=== PATIENT | male | born 1975 | race Caucasian/White ===

== ENCOUNTER 2017-07-26 03:49 | Inpatient (IN) | payer OTHER ==
[~2017-07-26] VITALS: Ht 188 cm; Wt 68.5 kg
[2017-07-26] MEDS ORDERED: IPRATRPIUM/ALBUTEROL 0.5/2.5MG 3 ML NEBU. ONE (04:07)
[2017-07-26 04:35] LABS: BASO % 0 % (0-3); EOS % 3 % (0-3); HEMATOCRIT 42.5 % (39.0-53.0); HEMOGLOBIN 14.6 g/dL (13.0-17.5); LYMPH # 1.1 x10^3/uL (1.0-4.8); LYMPH % 9 % (24-48); MEAN CORPUSCULAR HEMOGLOBIN 31 pg (25-35); MEAN CORPUSCULAR HGB CONC 34 g/dL (31-37); MEAN CORPUSCULAR VOLUME 91 fL (79-100); MONO % 7 % (0-9); NEUT % 81 % (31-73); PLATELET COUNT 265 x10^3/uL (140-400); RED BLOOD COUNT 4.68 x10^6/uL (4.30-5.70); RED CELL DISTRIBUTION WIDTH 13.4 % (11.5-14.5); WHITE BLOOD COUNT 13.3 x10^3/uL (4.0-11.0)
--- NOTE | 2017-07-26 04:39 | PHYS DOC ---
Past Medical History Past Medical History: Asthma Past Surgical History: Tonsillectomy, Other Additional Past Surgical Histo: EAR TUBES Alcohol Use: Rarely Drug Use: Marijuana Adult General Chief Complaint Chief Complaint: ASTHMA HPI HPI Patient is a 41 year old male with history of asthma requiring previous extended hospital with ICU admission resents with acute exacerbation starting several hours prior to ED arrival. She reports his congestion rhinorrhea and sore throat and body aches for the past 24 hours with progressive shortness of breath. Reports wet nonproductive cough. No fevers chills nausea or sweats. Patient has had recent viral illness exposure to children in the home. Patient used his albuterol inhaler 6-8 times her to ED arrival. Arrives by private vehicle speaking in 1-2 word sentences. Patient brought straight back to treatment room from triage. Patient is not currently on any home suppressive small medications. He is a current smoker and drinks occasional alcohol. Patient is accompanied at bedside by his spouse. [] Review of Systems Review of Systems ROS as per HPI [] All other systems were reviewed and found to be within normal limits, except as documented in this note. Current Medications Current Medications Current Medications Medications (Trade) Dose Ordered Sig/Luz Start Time Stop Time Status Last Admin Dose Admin Albuterol Sulfate (Ventolin Neb Soln) 10 mg 1X ONCE 07/26/17 05:00 07/26/17 05:01 DC 07/26/17 04:41 10 MG Albuterol/ Ipratropium (Duoneb) 3 ml STK-MED ONCE 07/26/17 04:07 07/26/17 04:08 DC Ipratropium [place] (Atrovent) 0.5 mg 1X ONCE 07/26/17 05:00 07/26/17 05:01 DC 07/26/17 04:41 0.5 MG Magnesium Sulfate/ Dextrose 100 ml @ 100 mls/hr 1X ONCE 07/26/17 05:00 07/26/17 05:59 DC 07/26/17 05:30 100 MLS/HR Methylprednisolone Sodium Succinate (SOLU-Medrol 125MG VIAL) 125 mg 1X ONCE 07/26/17 05:00 07/26/17 05:01 DC 07/26/17 05:30 125 MG Sodium Chloride 1,000 ml @ 1,000 mls/hr 1X ONCE 07/26/17 05:00 07/26/17 05:59 DC 07/26/17 05:30 1,000 MLS/HR Allergies Allergies Allergies Coded Allergies Type Severity Reaction Last Updated Verified Penicillins Allergy Severe Anaphylaxis 07/26/17 Yes iodine Allergy Severe Anaphylaxis 07/26/17 Yes Sulfa (Sulfonamide Antibiotics) Allergy Intermediate 07/26/17 Yes erythromycin base Allergy Intermediate 07/26/17 Yes Physical Exam Physical Exam Constitutional: Well developed, well nourished, moderate respiratory distress. [ ] HENT: Normocephalic, atraumatic, bilateral external ears normal, oropharynx moist, pharyngeal , nose orestes, congestion. [] Eyes: PERRLA, EOMI. [] Neck: Normal range of motion. [] Cardiovascular:Heart rate regular rhythm, no murmur [] Lungs & Thorax: Tory distress, with tripoding and supraclavicular retractions, speaks in 1-2 word sentences, significantly which breath sounds bilaterally with faint inspiratory next 3 wheezes. [] Abdomen: Bowel sounds normal, soft, no tenderness, no masses, no pulsatile masses. [] Skin: Warm, dry, no erythema. [] Back: No tenderness, no CVA tenderness. [] Extremities: No tenderness, no cyanosis, no clubbing, ROM intact, no edema. [] Neurologic: Alert and oriented X 3, normal motor function, normal sensory function, no focal deficits noted. [] Psychologic: Affect anxious. [] Current Patient Data Vital Signs Vital Signs Date Time Temp Pulse Resp B/P (MAP) Pulse Ox O2 Delivery O2 Flow Rate FiO2 07/26/17 05:00 104 36 110/64 (79) 100 Nasal Cannula 2.0 07/26/17 04:25 98.1 98.1 Lab Values Laboratory Tests Test 07/26/17 04:16 07/26/17 04:56 White Blood Count 13.3 x10^3/uL (4.0-11.0) H Red Blood Count 4.68 x10^6/uL (4.30-5.70) Hemoglobin 14.6 g/dL (13.0-17.5) Hematocrit 42.5 % (39.0-53.0) Mean Corpuscular Volume 91 fL (79-100) Mean Corpuscular Hemoglobin 31 pg (25-35) Mean Corpuscular Hemoglobin Concent 34 g/dL (31-37) Red Cell Distribution Width 13.4 % (11.5-14.5) Platelet Count 265 x10^3/uL (140-400) Neutrophils (%) (Auto) 81 % (31-73) H Lymphocytes (%) (Auto) 9 % (24-48) L Monocytes (%) (Auto) 7 % (0-9) Eosinophils (%) (Auto) 3 % (0-3) Basophils (%) (Auto) 0 % (0-3) Neutrophils # (Auto) 10.8 x10^3uL (1.8-7.7) H Lymphocytes # (Auto) 1.1 x10^3/uL (1.0-4.8) Monocytes # (Auto) 1.0 x10^3/uL (0.0-1.1) Eosinophils # (Auto) 0.4 x10^3/uL (0.0-0.7) Basophils # (Auto) 0.0 x10^3/uL (0.0-0.2) Sodium Level 140 mmol/L (136-145) Potassium Level 3.7 mmol/L (3.5-5.1) Chloride Level 101 mmol/L (98-107) Carbon Dioxide Level 27 mmol/L (21-32) Anion Gap 12 (6-14) Blood Urea Nitrogen 12 mg/dL (8-26) Creatinine 0.7 mg/dL (0.7-1.3) Estimated GFR (Cockcroft-Gault) 123.7 BUN/Creatinine Ratio 17 (6-20) Glucose Level 96 mg/dL (70-99) Calcium Level 9.2 mg/dL (8.5-10.1) Total Bilirubin 2.7 mg/dL (0.2-1.0) H Aspartate Amino Transferase (AST) 17 U/L (15-37) Alanine Aminotransferase (ALT) 24 U/L (16-63) Alkaline Phosphatase 67 U/L (46-116) Total Protein 7.8 g/dL (6.4-8.2) Albumin 4.7 g/dL (3.4-5.0) Albumin/Globulin Ratio 1.5 (1.0-1.7) Influenza Type A Antigen Negative (NEGATIVE) Influenza Type B Antigen Negative (NEGATIVE) Laboratory Tests 07/26/17 04:16 Laboratory Tests 07/26/17 04:16 EKG EKG [] Radiology/Procedures Radiology/Procedures [Chest XR: Hyperaeration of lungs. No acute obvious infiltrate.] Course & Med Decision Making Course & Med Decision Making Pertinent Labs and Imaging studies reviewed. (See chart for details) [Albuterol treatment, steroids given ED arrival. With clinical improvement. Patient requiring 4 L NC to maintain O2 sat renita maintain saturation greater than 90%. ] Dragon Disclaimer Dragon Disclaimer This electronic medical record was generated, in whole or in part, using a voice recognition dictation system. Departure Departure Impression: Primary Impression: Acute asthma exacerbation Additional Impression: Upper respiratory infection Disposition: ADMITTED INPATIENT Admitting Physician: Other (Dr. Gamboa) Condition: IMPROVED Referrals: NO PCP (PCP) Problem Qualifiers HUGO WALLER DO Jul 26, 2017 04:39
[2017-07-26 04:42] LABS: CALCIUM 9.2 mg/dL (8.5-10.1); CREATININE 0.7 mg/dL (0.7-1.3); GFR 123.7; POTASSIUM 3.7 mmol/L (3.5-5.1)
[2017-07-26 04:48] LABS: ALBUMIN 4.7 g/dL (3.4-5.0); ALBUMIN/GLOBULIN RATIO 1.5 (1.0-1.7); TOTAL BILIRUBIN 2.7 mg/dL (0.2-1.0); TOTAL PROTEIN 7.8 g/dL (6.4-8.2)
[2017-07-26] MEDS ORDERED: ALBUTEROL SULFATE 2.5 MG/3 ML NEBU. CONT NEB ONE (05:00)
[2017-07-26] MEDS ORDERED: MAGNESIUM SULFATE 1GM 100 ML IV ONE (05:00)
[2017-07-26] MEDS ORDERED: methylPREDNISolone SOD SUCC PF 125 MG/2 ML VIAL. IV ONE (05:00)
[2017-07-26] MEDS ORDERED: IV NORMAL SALINE 1000ML BAG 1,000 ML IV ONE (05:00)
[2017-07-26] MEDS ORDERED: IPRATROPIUM BROMIDE 0.5 MG/2.5 ML NEBU. NEB ONE (05:00)
[2017-07-26 05:26] LABS: OBC FLU VALID
--- NOTE | 2017-07-26 06:28 | EKG ---
[facility] [address] [place] [address] Test Date: 2017-07-26 Test Time: 04:39:59 Pat Name: DALTON DIXON Department: Room: Gender: M Nurse Staff: : 1975 Requested By: HUGO WALLER Order Number: [id number] Reading MD: Measurements Intervals [place] Rate: 99 P: MI: QRS: 80 QRSD: 88 T: 64 QT: 350 QTc: 449 Interpretive Statements ACCELERATED JUNCTIONAL RHYTHM ABNORMAL ECG RI6.01 No previous ECG available for comparison
[2017-07-26 07:00] VITALS: BP 103/60
[2017-07-26] MEDS ORDERED: ONDANSETRON PF 4 MG/2 ML VIAL. IV PRN (07:00)
--- NOTE | 2017-07-26 07:37 | RAD ---
AP chest History: Short of air AP view was taken of the chest. Lungs are clear. Heart is normal in size without heart failure. There is no effusion. There is mild hyperexpansion. Impression: 1. Hyperexpansion, no acute infiltrates.
[2017-07-26] MEDS: IPRATRPIUM/ALBUTEROL 0.5/2.5MG 3 ML NEBU. NEB SCH ×4 (07:40→19:42)
[2017-07-26] MEDS ORDERED: IPRATRPIUM/ALBUTEROL 0.5/2.5MG 3 ML NEBU. NEB SCH (08:00)
--- NOTE | 2017-07-26 08:29 | PDOC ---
PULMONARY PROGRESS NOTES Vitals Vital Signs Date Time Temp Pulse Resp B/P (MAP) Pulse Ox O2 Delivery O2 Flow Rate FiO2 07/26/17 07:40 97 Nasal Cannula 2.0 07/26/17 05:30 104 22 113/63 (80) 07/26/17 04:25 98.1 98.1 Labs Laboratory Tests Test 07/26/17 04:16 07/26/17 04:56 White Blood Count 13.3 x10^3/uL (4.0-11.0) Red Blood Count 4.68 x10^6/uL (4.30-5.70) Hemoglobin 14.6 g/dL (13.0-17.5) Hematocrit 42.5 % (39.0-53.0) Mean Corpuscular Volume 91 fL (79-100) Mean Corpuscular Hemoglobin 31 pg (25-35) Mean Corpuscular Hemoglobin Concent 34 g/dL (31-37) Red Cell Distribution Width 13.4 % (11.5-14.5) Platelet Count 265 x10^3/uL (140-400) Neutrophils (%) (Auto) 81 % (31-73) Lymphocytes (%) (Auto) 9 % (24-48) Monocytes (%) (Auto) 7 % (0-9) Eosinophils (%) (Auto) 3 % (0-3) Basophils (%) (Auto) 0 % (0-3) Neutrophils # (Auto) 10.8 x10^3uL (1.8-7.7) Lymphocytes # (Auto) 1.1 x10^3/uL (1.0-4.8) Monocytes # (Auto) 1.0 x10^3/uL (0.0-1.1) Eosinophils # (Auto) 0.4 x10^3/uL (0.0-0.7) Basophils # (Auto) 0.0 x10^3/uL (0.0-0.2) Sodium Level 140 mmol/L (136-145) Potassium Level 3.7 mmol/L (3.5-5.1) Chloride Level 101 mmol/L (98-107) Carbon Dioxide Level 27 mmol/L (21-32) Anion Gap 12 (6-14) Blood Urea Nitrogen 12 mg/dL (8-26) Creatinine 0.7 mg/dL (0.7-1.3) Estimated GFR (Cockcroft-Gault) 123.7 BUN/Creatinine Ratio 17 (6-20) Glucose Level 96 mg/dL (70-99) Calcium Level 9.2 mg/dL (8.5-10.1) Total Bilirubin 2.7 mg/dL (0.2-1.0) Aspartate Amino Transf (AST/SGOT) 17 U/L (15-37) Alanine Aminotransferase (ALT/SGPT) 24 U/L (16-63) Alkaline Phosphatase 67 U/L (46-116) Total Protein 7.8 g/dL (6.4-8.2) Albumin 4.7 g/dL (3.4-5.0) Albumin/Globulin Ratio 1.5 (1.0-1.7) Influenza Type A Antigen Negative (NEGATIVE) Influenza Type B Antigen Negative (NEGATIVE) Laboratory Tests Test 07/26/17 04:16 07/26/17 04:56 White Blood Count 13.3 x10^3/uL (4.0-11.0) Red Blood Count 4.68 x10^6/uL (4.30-5.70) Hemoglobin 14.6 g/dL (13.0-17.5) Hematocrit 42.5 % (39.0-53.0) Mean Corpuscular Volume 91 fL (79-100) Mean Corpuscular Hemoglobin 31 pg (25-35) Mean Corpuscular Hemoglobin Concent 34 g/dL (31-37) Red Cell Distribution Width 13.4 % (11.5-14.5) Platelet Count 265 x10^3/uL (140-400) Neutrophils (%) (Auto) 81 % (31-73) Lymphocytes (%) (Auto) 9 % (24-48) Monocytes (%) (Auto) 7 % (0-9) Eosinophils (%) (Auto) 3 % (0-3) Basophils (%) (Auto) 0 % (0-3) Neutrophils # (Auto) 10.8 x10^3uL (1.8-7.7) Lymphocytes # (Auto) 1.1 x10^3/uL (1.0-4.8) Monocytes # (Auto) 1.0 x10^3/uL (0.0-1.1) Eosinophils # (Auto) 0.4 x10^3/uL (0.0-0.7) Basophils # (Auto) 0.0 x10^3/uL (0.0-0.2) Sodium Level 140 mmol/L (136-145) Potassium Level 3.7 mmol/L (3.5-5.1) Chloride Level 101 mmol/L (98-107) Carbon Dioxide Level 27 mmol/L (21-32) Anion Gap 12 (6-14) Blood Urea Nitrogen 12 mg/dL (8-26) Creatinine 0.7 mg/dL (0.7-1.3) Estimated GFR (Cockcroft-Gault) 123.7 BUN/Creatinine Ratio 17 (6-20) Glucose Level 96 mg/dL (70-99) Calcium Level 9.2 mg/dL (8.5-10.1) Total Bilirubin 2.7 mg/dL (0.2-1.0) Aspartate Amino Transf (AST/SGOT) 17 U/L (15-37) Alanine Aminotransferase (ALT/SGPT) 24 U/L (16-63) Alkaline Phosphatase 67 U/L (46-116) Total Protein 7.8 g/dL (6.4-8.2) Albumin 4.7 g/dL (3.4-5.0) Albumin/Globulin Ratio 1.5 (1.0-1.7) Influenza Type A Antigen Negative (NEGATIVE) Influenza Type B Antigen Negative (NEGATIVE) Impression . FULL NOTE DICTATED AECOPD/ASTHMA EXAC THANKS WINNIE TURPIN MD Jul 26, 2017 08:29
[2017-07-26] MEDS: DOXYCYCLINE HYCLATE 100 MG TABLET PO SCH ×2 (08:46→20:24)
[2017-07-26] MEDS: methylPREDNISolone SOD SUCC PF 125 MG/2 ML VIAL. IV SCH ×3 (08:47→20:25)
[2017-07-26] MEDS ORDERED: IBUPROFEN 400 MG TABLET. PO PRN (09:30)
[2017-07-26] MEDS: ALBUTEROL SULFATE 2.5 MG/3 ML NEBU. NEB PRN ×3 (09:39→23:23)
[2017-07-26] MEDS: guaiFENesin/CODEINE 100mg/10mg 5 ML LIQUID PO PRN ×2 (10:29→20:24)
[2017-07-26] MEDS: IV NORMAL SALINE 1000ML BAG 1,000 ML IV SCH ×2 (10:30→14:52)
[2017-07-26 11:00] VITALS: BP 107/54
[2017-07-26] MEDS: HYDROcodone/APAP 5/325MG 1 TAB TABLET PO PRN (13:53)
[2017-07-26 15:00] VITALS: BP 97/78
--- NOTE | 2017-07-26 17:39 | HP ---
ADMIT DATE: 07/26/2017 CHIEF COMPLAINT: Acute hypoxic respiratory failure. HISTORY OF PRESENT ILLNESS: The patient is a 41-year-old smoker with history of asthma who presented to the Emergency Room with a 2-day history of worsening shortness of breath. He related that 2 days ago he started having upper respiratory symptoms with stuffy nose, postnasal drip, sore throat, but no fevers. This slowly got worse and this morning he woke up being unable to breathe and therefore presented to the Emergency Room. He denies any fevers, chills or any ongoing upper respiratory symptoms, any chest pain, nausea, vomiting or diarrhea. In the Emergency Room, chest x-ray was clear, and he was admitted for asthma exacerbation. PAST MEDICAL HISTORY: Childhood asthma, cannot remember if he ever was intubated as a child, grew out of his symptoms in his teenage years, but recurrence in adulthood. FAMILY HISTORY: No other members with asthma. SOCIAL HISTORY: He is , moved here from [place] one and a half years ago. Works for an [employer] company. Smokes about half a pack a day. Denies any alcohol or drug use. ALLERGIES: PENICILLIN, SULFA, ERYTHROMYCIN BASE, AND IODINE. HOME MEDICATIONS: Albuterol inhaler p.r.n. REVIEW OF SYSTEMS: Positive as per HPI. Rest of organ system review discussed with him and found negative. PHYSICAL EXAMINATION: VITAL SIGNS: From today show a blood pressure of 97/78, heart rate of 101, respiratory rate at 20. He is afebrile. GENERAL: This is a well-nourished 41-year-old gentleman, alert and oriented, in no acute distress, although working to breathe. HEENT: Shows no scleral icterus. NECK: Supple, using accessory muscles. LUNGS: Coarse with wheezes bilaterally. HEART: Has regular rate and rhythm. ABDOMEN: Positive bowel sounds. EXTREMITIES: Show no edema, no clubbing. SKIN: Warm, soft and dry. NEUROLOGIC: He appears grossly intact. LABORATORY DATA: CBC with a WBC of 13.3, hemoglobin of 14.6, platelets of 267. BUN and creatinine 12 and 0.7, normal electrolytes, normal LFTs save for a bilirubin at 2.7. Serologies for flu are negative. IMAGING STUDIES: Chest x-ray shows hyperexpansion, no acute infiltrate. ASSESSMENT AND PLAN: The patient is a 41-year-old gentleman with asthma/chronic obstructive pulmonary disease exacerbation triggered by a upper respiratory infection. He has been started on high-dose steroids with good improvement of his symptoms. Switch dose to p.o. in the morning. Also is on nebulizers and supplemental O2 at this time. For his upper respiratory symptoms, Doxy has been started empirically. Bilirubin is significantly elevated as the only liver function test. Suspect Gilbert syndrome. We will monitor bilirubin for now. ERICKA ZHAO MD DR: UR/nts JOB#: [id number] / [id number] CAIN
[2017-07-26 19:00] VITALS: BP 126/61
[2017-07-26] MEDS: LACTOBACILLUS RHAMNOSUS GG 1 CAPSULE. PO SCH (20:24)
--- NOTE | 2017-07-26 21:02 | CONS ---
DATE OF CONSULTATION: 07/26/2017 ATTENDING PHYSICIAN: Dr. Gamboa. REASON FOR CONSULTATION: The patient seen in pulmonary consultation at the request of Dr. Gamboa for increasing shortness of air, history of asthma. HISTORY OF PRESENT ILLNESS: The patient is a 41-year-old with a history of asthma, adequately controlled with p.r.n. albuterol. He could not remember the last time he used albuterol. Over the last 24 hours, he presented with increasing shortness of breath. He had some rhinorrhea, sore throat and body aches in last 24 hours. The patient recently moved here from [place]. He does not have a family physician. He presented with private vehicle, not being able to complete full sentences. He now feels better. He is a current smoker, occasional use of alcohol. Otherwise, no other past medical history. MEDICAL HISTORY: As indicated above, mild asthma. SOCIAL HISTORY: Occasional use of alcohol. He does smoke. PAST SURGICAL HISTORY: Status post tonsillectomy. REVIEW OF SYSTEMS: As indicated above, otherwise, a 10-point system was reviewed and negative. CURRENT MEDICATIONS: List was reviewed. ALLERGIES: PENICILLIN, SULFA, AND ERYTHROMYCIN. PHYSICAL EXAMINATION: GENERAL: The patient was in mild respiratory distress, 2 liters of oxygen supplementation. He was not able to complete full sentences. HEENT: Eyes, the sclerae were nonicteric. NECK: Jugular venous distention was not elevated. No lymphadenopathy. CHEST: Full expansion. LUNGS: Bilateral coarse breath sounds with inspiratory and expiratory wheeze. CARDIOVASCULAR: Regular rate and rhythm with S1, S2, no S3. ABDOMEN: Soft, nontender, nondistended. EXTREMITIES: No clubbing, cyanosis or edema. Chest x-ray was reviewed, no acute infiltrates. LABORATORY DATA: Reviewed. White count was elevated. Hemoglobin and hematocrit were noted. Electrolytes were noted. Influenza screen was negative. IMPRESSION: 1. Acute respiratory failure. 2. Acute exacerbation of asthma/chronic obstructive pulmonary disease. 3. Tobacco dependent. 4. Suspect viral illness causing the above, nonspecific acute bronchitis. RECOMMENDATIONS: 1. Continue oxygen. 2. Nebulized treatments. 3. Solu-Medrol. 4. Doxycycline. 5. The patient instructed on the importance of discontinuing tobacco use. I do appreciate the privilege in sharing in the patient's care. WINNIE TURPIN MD DR: Kristine JOB#: [id number] / [id number]
[2017-07-26] MEDS ORDERED: MORPHINE SULFATE 2 MG/ML DISP.SYRIN. IV PRN (22:00)
[2017-07-26] MEDS: traZODone 50 MG TABLET. PO PRN (22:11)
[2017-07-26 23:00] VITALS: BP 113/60
[2017-07-26] MEDS: ALPRAZolam 0.5 MG TABLET PO PRN (23:43)
[2017-07-26] MEDS: QUEtiapine 100 MG TABLET. PO PRN (23:43)
[2017-07-27 02:49] VITALS: BP 117/57
[2017-07-27 04:20] LABS: BASO % 0 % (0-3); EOS % 0 % (0-3); HEMATOCRIT 35.5 % (39.0-53.0); HEMOGLOBIN 12.1 g/dL (13.0-17.5); LYMPH # 0.6 x10^3/uL (1.0-4.8); LYMPH % 4 % (24-48); MEAN CORPUSCULAR HEMOGLOBIN 31 pg (25-35); MEAN CORPUSCULAR HGB CONC 34 g/dL (31-37); MEAN CORPUSCULAR VOLUME 91 fL (79-100); MONO % 3 % (0-9); NEUT % 93 % (31-73); PLATELET COUNT 249 x10^3/uL (140-400); RED BLOOD COUNT 3.91 x10^6/uL (4.30-5.70); RED CELL DISTRIBUTION WIDTH 13.7 % (11.5-14.5); WHITE BLOOD COUNT 14.5 x10^3/uL (4.0-11.0)
[2017-07-27 04:48] LABS: ALBUMIN 3.8 g/dL (3.4-5.0); CALCIUM 8.5 mg/dL (8.5-10.1); CREATININE 0.7 mg/dL (0.7-1.3); DIRECT BILIRUBIN 0.2 mg/dL (0.0-0.2); GFR 123.7; POTASSIUM 3.7 mmol/L (3.5-5.1); TOTAL PROTEIN 6.7 g/dL (6.4-8.2)
[2017-07-27] MEDS: guaiFENesin/CODEINE 100mg/10mg 5 ML LIQUID PO PRN ×4 (05:50→20:01)
[2017-07-27] MEDS: ALPRAZolam 0.5 MG TABLET PO PRN ×4 (05:50→20:02)
[2017-07-27] MEDS: MORPHINE SULFATE 2 MG/ML DISP.SYRIN. IV PRN ×7 (05:51→23:34)
[2017-07-27] MEDS: IPRATRPIUM/ALBUTEROL 0.5/2.5MG 3 ML NEBU. NEB SCH ×5 (05:53→22:00)
[2017-07-27 07:00] VITALS: BP 113/49
[2017-07-27 07:42] LABS: PLT ESTIMATE ADEQUATE (ADEQUATE)
[2017-07-27 07:43] LABS: ANISOCYTOSIS SLIGHT
[2017-07-27] MEDS: DOXYCYCLINE HYCLATE 100 MG TABLET PO SCH ×2 (07:47→20:02)
[2017-07-27] MEDS: predniSONE 20 MG TABLET PO SCH (07:48)
[2017-07-27] MEDS: LACTOBACILLUS RHAMNOSUS GG 1 CAPSULE. PO SCH ×2 (07:48→20:02)
[2017-07-27] MEDS: ALBUTEROL SULFATE 2.5 MG/3 ML NEBU. NEB PRN (08:07)
[2017-07-27] MEDS ORDERED: BUDESONIDE 0.5 MG/2 ML NEBU. NEB ONE (09:15)
--- NOTE | 2017-07-27 09:24 | PDOC ---
PROGRESS NOTES Chief Complaint Chief Complaint acute asthma exacerbation acute hypoxic respiratory failure upper respiratory infection. . History of Present Illness History of Present Illness marked weakness try to wean down the 02 cough suppression, throat lozenge Vitals Vitals Vital Signs Date Time Temp Pulse Resp B/P (MAP) Pulse Ox O2 Delivery O2 Flow Rate FiO2 07/27/17 08:23 20 93 Nasal Cannula 2.0 07/27/17 07:00 97.9 104 113/49 (70) 97.9 Physical Exam General: Alert, Oriented X3, Cooperative, No acute distress Heart: Regular rate Lungs: Wheezing, Crackles Abdomen: Soft, No tenderness Extremities: No cyanosis Skin: No rashes Labs LABS Laboratory Tests Test 07/27/17 03:38 White Blood Count 14.5 x10^3/uL (4.0-11.0) Red Blood Count 3.91 x10^6/uL (4.30-5.70) Hemoglobin 12.1 g/dL (13.0-17.5) Hematocrit 35.5 % (39.0-53.0) Mean Corpuscular Volume 91 fL (79-100) Mean Corpuscular Hemoglobin 31 pg (25-35) Mean Corpuscular Hemoglobin Concent 34 g/dL (31-37) Red Cell Distribution Width 13.7 % (11.5-14.5) Platelet Count 249 x10^3/uL (140-400) Neutrophils (%) (Auto) 93 % (31-73) Lymphocytes (%) (Auto) 4 % (24-48) Monocytes (%) (Auto) 3 % (0-9) Eosinophils (%) (Auto) 0 % (0-3) Basophils (%) (Auto) 0 % (0-3) Neutrophils # (Auto) 13.4 x10^3uL (1.8-7.7) Lymphocytes # (Auto) 0.6 x10^3/uL (1.0-4.8) Monocytes # (Auto) 0.5 x10^3/uL (0.0-1.1) Eosinophils # (Auto) 0.0 x10^3/uL (0.0-0.7) Basophils # (Auto) 0.0 x10^3/uL (0.0-0.2) Segmented Neutrophils % 94 % (35-66) Lymphocytes % 3 % (24-48) Monocytes % 3 % (0-10) Platelet Estimate Adequate (ADEQUATE) Anisocytosis Slight Schistocytes Sodium Level 142 mmol/L (136-145) Potassium Level 3.7 mmol/L (3.5-5.1) Chloride Level 107 mmol/L (98-107) Carbon Dioxide Level 22 mmol/L (21-32) Anion Gap 13 (6-14) Blood Urea Nitrogen 18 mg/dL (8-26) Creatinine 0.7 mg/dL (0.7-1.3) Estimated GFR (Cockcroft-Gault) 123.7 Glucose Level 138 mg/dL (70-99) Calcium Level 8.5 mg/dL (8.5-10.1) Total Bilirubin 1.0 mg/dL (0.2-1.0) Direct Bilirubin 0.2 mg/dL (0.0-0.2) Aspartate Amino Transf (AST/SGOT) 13 U/L (15-37) Alanine Aminotransferase (ALT/SGPT) 19 U/L (16-63) Alkaline Phosphatase 53 U/L (46-116) Total Protein 6.7 g/dL (6.4-8.2) Albumin 3.8 g/dL (3.4-5.0) Review of Systems Review of Systems cough, sore thought, dyspnea, weakness no n.v.d Assessment and Plan Assessmemt and Plan Problems Medical Problems: (1) Acute asthma exacerbation Status: Acute (2) Upper respiratory infection Status: Acute Problems: Comment Review of Relevant I have reviewed the following items tiesha (where applicable) has been applied. Labs Laboratory Tests Test 07/26/17 04:16 07/26/17 04:56 07/27/17 03:38 White Blood Count 13.3 x10^3/uL (4.0-11.0) 14.5 x10^3/uL (4.0-11.0) Red Blood Count 4.68 x10^6/uL (4.30-5.70) 3.91 x10^6/uL (4.30-5.70) Hemoglobin 14.6 g/dL (13.0-17.5) 12.1 g/dL (13.0-17.5) Hematocrit 42.5 % (39.0-53.0) 35.5 % (39.0-53.0) Mean Corpuscular Volume 91 fL (79-100) 91 fL (79-100) Mean Corpuscular Hemoglobin 31 pg (25-35) 31 pg (25-35) Mean Corpuscular Hemoglobin Concent 34 g/dL (31-37) 34 g/dL (31-37) Red Cell Distribution Width 13.4 % (11.5-14.5) 13.7 % (11.5-14.5) Platelet Count 265 x10^3/uL (140-400) 249 x10^3/uL (140-400) Neutrophils (%) (Auto) 81 % (31-73) 93 % (31-73) Lymphocytes (%) (Auto) 9 % (24-48) 4 % (24-48) Monocytes (%) (Auto) 7 % (0-9) 3 % (0-9) Eosinophils (%) (Auto) 3 % (0-3) 0 % (0-3) Basophils (%) (Auto) 0 % (0-3) 0 % (0-3) Neutrophils # (Auto) 10.8 x10^3uL (1.8-7.7) 13.4 x10^3uL (1.8-7.7) Lymphocytes # (Auto) 1.1 x10^3/uL (1.0-4.8) 0.6 x10^3/uL (1.0-4.8) Monocytes # (Auto) 1.0 x10^3/uL (0.0-1.1) 0.5 x10^3/uL (0.0-1.1) Eosinophils # (Auto) 0.4 x10^3/uL (0.0-0.7) 0.0 x10^3/uL (0.0-0.7) Basophils # (Auto) 0.0 x10^3/uL (0.0-0.2) 0.0 x10^3/uL (0.0-0.2) Sodium Level 140 mmol/L (136-145) 142 mmol/L (136-145) Potassium Level 3.7 mmol/L (3.5-5.1) 3.7 mmol/L (3.5-5.1) Chloride Level 101 mmol/L (98-107) 107 mmol/L (98-107) Carbon Dioxide Level 27 mmol/L (21-32) 22 mmol/L (21-32) Anion Gap 12 (6-14) 13 (6-14) Blood Urea Nitrogen 12 mg/dL (8-26) 18 mg/dL (8-26) Creatinine 0.7 mg/dL (0.7-1.3) 0.7 mg/dL (0.7-1.3) Estimated GFR (Cockcroft-Gault) 123.7 123.7 BUN/Creatinine Ratio 17 (6-20) Glucose Level 96 mg/dL (70-99) 138 mg/dL (70-99) Calcium Level 9.2 mg/dL (8.5-10.1) 8.5 mg/dL (8.5-10.1) Total Bilirubin 2.7 mg/dL (0.2-1.0) 1.0 mg/dL (0.2-1.0) Aspartate Amino Transf (AST/SGOT) 17 U/L (15-37) 13 U/L (15-37) Alanine Aminotransferase (ALT/SGPT) 24 U/L (16-63) 19 U/L (16-63) Alkaline Phosphatase 67 U/L (46-116) 53 U/L (46-116) Total Protein 7.8 g/dL (6.4-8.2) 6.7 g/dL (6.4-8.2) Albumin 4.7 g/dL (3.4-5.0) 3.8 g/dL (3.4-5.0) Albumin/Globulin Ratio 1.5 (1.0-1.7) Influenza Type A Antigen Negative (NEGATIVE) Influenza Type B Antigen Negative (NEGATIVE) Segmented Neutrophils % 94 % (35-66) Lymphocytes % 3 % (24-48) Monocytes % 3 % (0-10) Platelet Estimate Adequate (ADEQUATE) Anisocytosis Slight Schistocytes Direct Bilirubin 0.2 mg/dL (0.0-0.2) Laboratory Tests Test 07/27/17 03:38 White Blood Count 14.5 x10^3/uL (4.0-11.0) Red Blood Count 3.91 x10^6/uL (4.30-5.70) Hemoglobin 12.1 g/dL (13.0-17.5) Hematocrit 35.5 % (39.0-53.0) Mean Corpuscular Volume 91 fL (79-100) Mean Corpuscular Hemoglobin 31 pg (25-35) Mean Corpuscular Hemoglobin Concent 34 g/dL (31-37) Red Cell Distribution Width 13.7 % (11.5-14.5) Platelet Count 249 x10^3/uL (140-400) Neutrophils (%) (Auto) 93 % (31-73) Lymphocytes (%) (Auto) 4 % (24-48) Monocytes (%) (Auto) 3 % (0-9) Eosinophils (%) (Auto) 0 % (0-3) Basophils (%) (Auto) 0 % (0-3) Neutrophils # (Auto) 13.4 x10^3uL (1.8-7.7) Lymphocytes # (Auto) 0.6 x10^3/uL (1.0-4.8) Monocytes # (Auto) 0.5 x10^3/uL (0.0-1.1) Eosinophils # (Auto) 0.0 x10^3/uL (0.0-0.7) Basophils # (Auto) 0.0 x10^3/uL (0.0-0.2) Segmented Neutrophils % 94 % (35-66) Lymphocytes % 3 % (24-48) Monocytes % 3 % (0-10) Platelet Estimate Adequate (ADEQUATE) Anisocytosis Slight Schistocytes Sodium Level 142 mmol/L (136-145) Potassium Level 3.7 mmol/L (3.5-5.1) Chloride Level 107 mmol/L (98-107) Carbon Dioxide Level 22 mmol/L (21-32) Anion Gap 13 (6-14) Blood Urea Nitrogen 18 mg/dL (8-26) Creatinine 0.7 mg/dL (0.7-1.3) Estimated GFR (Cockcroft-Gault) 123.7 Glucose Level 138 mg/dL (70-99) Calcium Level 8.5 mg/dL (8.5-10.1) Total Bilirubin 1.0 mg/dL (0.2-1.0) Direct Bilirubin 0.2 mg/dL (0.0-0.2) Aspartate Amino Transf (AST/SGOT) 13 U/L (15-37) Alanine Aminotransferase (ALT/SGPT) 19 U/L (16-63) Alkaline Phosphatase 53 U/L (46-116) Total Protein 6.7 g/dL (6.4-8.2) Albumin 3.8 g/dL (3.4-5.0) Medications Current Medications Albuterol/ Ipratropium (Duoneb) 3 ml STK-MED ONCE .ROUTE ; Start 07/26/17 at 04 :07; Stop 07/26/17 at 04:08; Status DC Albuterol Sulfate (Ventolin Neb Soln) 10 mg 1X ONCE CONT NEB Last administered on 07/26/17 04:41; Start 07/26/17 at 05:00; Stop 07/26/17 at 05 :01; Status DC Ipratropium [place] (Atrovent) 0.5 mg 1X ONCE NEB Last administered on 04:41; Start 07/26/17 at 05:00; Stop 07/26/17 at 05:01; Status DC Methylprednisolone Sodium Succinate (SOLU-Medrol 125MG VIAL) 125 mg 1X ONCE IV Last administered on 07/26/17 05:30; Start 07/26/17 at 05:00; Stop at 05:01; Status DC Magnesium Sulfate/ Dextrose 100 ml @ 100 mls/hr 1X ONCE IV Last administered on 07/26/17 05:30; Start 07/26/17 at 05:00; Stop 07/26/17 at 05:59; Status DC Sodium Chloride 1,000 ml @ 1,000 mls/hr 1X ONCE IV Last administered on 07/26 05:30; Start 07/26/17 at 05:00; Stop 07/26/17 at 05:59; Status DC Ondansetron HCl (Zofran) 4 mg PRN Q8HRS PRN IV NAUSEA/VOMITING; Start at 07:00; Stop 07/27/17 at 06:59; Status DC Sodium Chloride 1,000 ml @ 125 mls/hr Q8H IV Last administered on 07/26/17 10:30; Start 07/26/17 at 06:52; Stop 07/26/17 at 16:25; Status DC Albuterol/ Ipratropium (Duoneb) 3 ml RTQID NEB Last administered on 07/26/17 07:40; Start 07/26/17 at 08:00; Stop 07/26/17 at 08:57; Status DC Albuterol Sulfate (Ventolin Neb Soln) 2.5 mg PRN Q2HRS PRN NEB SHORTNESS OF BREATH Last administered on 07/27/17 08:07; Start 07/26/17 at 07:30 Albuterol/ Ipratropium (Duoneb) 3 ml RTQID NEB Last administered on 07/27/17 05:53; Start 07/26/17 at 08:30 Methylprednisolone Sodium Succinate (SOLU-Medrol 125MG VIAL) 80 mg Q8HRS IV Last administered on 07/26/17 20:25; Start 07/26/17 at 08:30; Stop 07/26/17 at 23:00; Status DC Doxycycline Hyclate (Vibra-Tab) 100 mg BID PO Last administered on 07/27/17 07:47; Start 07/26/17 at 09:00 Ibuprofen (Motrin) 400 mg PRN Q8HRS PRN PO INFLAMMATION Last administered on 17:42; Start 07/26/17 at 09:30 Acetaminophen/ Hydrocodone Bitart (Lortab 5/325) 1 tab PRN Q8HRS PRN PO PAIN Last administered on 07/26/17 13:53; Start 07/26/17 at 09:30 Guaifenesin/ Codeine Phosphate (Robitussin Ac) 5 ml PRN Q4HRS PRN PO cough Last administered on 07/27/17 05:50; Start 07/26/17 at 10:00 Lactobacillus Rhamnosus (Culturelle) 1 cap BID PO Last administered on 07:48; Start 07/26/17 at 21:00 Prednisone (Prednisone) 40 mg DAILY PO Last administered on 07/27/17 07:48; Start 07/27/17 at 09:00 Morphine Sulfate 2 mg PRN Q2HR PRN IV MODERATE PAIN Last administered on 22:11; Start 07/26/17 at 22:00 Morphine Sulfate 4 mg PRN Q2HR PRN IV SEVERE PAIN Last administered on 07:53; Start 07/26/17 at 22:00 Alprazolam (Xanax) 0.5 mg PRN Q4HRS PRN PO ANXIETY / AGITATION Last administered on 07/27/17 05:50; Start 07/26/17 at 22:00 Trazodone HCl (Desyrel) 50 mg PRN QHS PRN PO INSOMNIA Last administered on 22:11; Start 07/26/17 at 22:00 Quetiapine Fumarate (SEROquel) 100 mg PRN BID PRN PO AGITATION Last administered on 07/26/17 23:43; Start 07/26/17 at 22:00 Vitals/I & O Vital Sign - Last 24 Hours 07/26/17 07/26/17 07/26/17 07/26/17 09:40 11:00 11:21 13:33 Temp 98.2 98.2 Pulse 98 Resp 18 B/P (MAP) 107/54 (71) Pulse Ox 92 O2 Delivery Nasal Cannula Room Air Nasal Cannula Nasal Cannula O2 Flow Rate 2.0 2.0 2.0 07/26/17 07/26/17 07/26/17 07/26/17 13:53 14:53 15:00 15:24 Temp 98.0 98.0 Pulse 101 Resp 20 B/P (MAP) 97/78 (84) Pulse Ox 92 92 97 O2 Delivery Nasal Cannula Nasal Cannula Room Air Nasal Cannula O2 Flow Rate 2.0 2.0 2.0 07/26/17 07/26/17 07/26/17 07/26/17 19:00 19:45 20:12 22:11 Temp 97.6 97.6 Pulse 105 Resp 17 18 B/P (MAP) 126/61 (82) Pulse Ox 97 98 98 O2 Delivery Nasal Cannula Nasal Cannula Nasal Cannula Nasal Cannula O2 Flow Rate 2.0 2.0 2.0 2.0 07/26/17 07/26/17 07/26/17 07/27/17 22:45 23:00 23:25 02:49 Temp 97.2 97.4 97.2 97.4 Pulse 102 107 Resp 18 17 16 B/P (MAP) 113/60 (77) 117/57 (77) Pulse Ox 98 93 93 94 O2 Delivery Nasal Cannula Nasal Cannula Nasal Cannula Nasal Cannula O2 Flow Rate 2.0 2.0 2.0 2.0 07/27/17 07/27/17 07/27/17 07/27/17 05:51 05:53 07:00 07:53 Temp 97.9 97.9 Pulse 104 Resp 18 18 18 B/P (MAP) 113/49 (70) Pulse Ox 94 94 95 94 O2 Delivery Nasal Cannula Nasal Cannula Nasal Cannula Nasal Cannula O2 Flow Rate 2.0 2.0 2.0 2.0 07/27/17 07/27/17 07/27/17 08:00 08:07 08:23 Resp 20 Pulse Ox 93 93 O2 Delivery Nasal Cannula Nasal Cannula Nasal Cannula O2 Flow Rate 2.0 2.0 2.0 Intake and Output 07/26/17 07/26/17 07/27/17 15:00 23:00 07:00 Intake Total 600 ml 240 ml Balance 600 ml 240 ml MANUEL LOZANO MD Jul 27, 2017 09:24
[2017-07-27] MEDS ORDERED: BENZOCAINE/MENTHOL LOZENGE. PO PRN (09:30)
[2017-07-27] MEDS ORDERED: BENZOCAINE/MENTHOL LOZENGE. PO ONE (09:30)
[2017-07-27 11:13] VITALS: BP 104/57
--- NOTE | 2017-07-27 11:45 | PDOC ---
PULMONARY PROGRESS NOTES Subjective still congested Vitals Vital Signs Date Time Temp Pulse Resp B/P (MAP) Pulse Ox O2 Delivery O2 Flow Rate FiO2 07/27/17 11:17 Nasal Cannula 2.0 07/27/17 11:17 93 07/27/17 11:13 97.9 117 18 104/57 (73) 97.9 ROS: No Nausea, No Chest Pain, No Abdominal Pain, No Increase Cough General: Alert, No acute distress Lungs: Wheezing (bilateral) Cardiovascular: S1 Abdomen: Soft Neuro Exam: Alert Extremities: No Edema Skin: Warm Labs Laboratory Tests Test 07/26/17 04:16 07/26/17 04:56 07/27/17 03:38 White Blood Count 13.3 x10^3/uL (4.0-11.0) 14.5 x10^3/uL (4.0-11.0) Red Blood Count 4.68 x10^6/uL (4.30-5.70) 3.91 x10^6/uL (4.30-5.70) Hemoglobin 14.6 g/dL (13.0-17.5) 12.1 g/dL (13.0-17.5) Hematocrit 42.5 % (39.0-53.0) 35.5 % (39.0-53.0) Mean Corpuscular Volume 91 fL (79-100) 91 fL (79-100) Mean Corpuscular Hemoglobin 31 pg (25-35) 31 pg (25-35) Mean Corpuscular Hemoglobin Concent 34 g/dL (31-37) 34 g/dL (31-37) Red Cell Distribution Width 13.4 % (11.5-14.5) 13.7 % (11.5-14.5) Platelet Count 265 x10^3/uL (140-400) 249 x10^3/uL (140-400) Neutrophils (%) (Auto) 81 % (31-73) 93 % (31-73) Lymphocytes (%) (Auto) 9 % (24-48) 4 % (24-48) Monocytes (%) (Auto) 7 % (0-9) 3 % (0-9) Eosinophils (%) (Auto) 3 % (0-3) 0 % (0-3) Basophils (%) (Auto) 0 % (0-3) 0 % (0-3) Neutrophils # (Auto) 10.8 x10^3uL (1.8-7.7) 13.4 x10^3uL (1.8-7.7) Lymphocytes # (Auto) 1.1 x10^3/uL (1.0-4.8) 0.6 x10^3/uL (1.0-4.8) Monocytes # (Auto) 1.0 x10^3/uL (0.0-1.1) 0.5 x10^3/uL (0.0-1.1) Eosinophils # (Auto) 0.4 x10^3/uL (0.0-0.7) 0.0 x10^3/uL (0.0-0.7) Basophils # (Auto) 0.0 x10^3/uL (0.0-0.2) 0.0 x10^3/uL (0.0-0.2) Sodium Level 140 mmol/L (136-145) 142 mmol/L (136-145) Potassium Level 3.7 mmol/L (3.5-5.1) 3.7 mmol/L (3.5-5.1) Chloride Level 101 mmol/L (98-107) 107 mmol/L (98-107) Carbon Dioxide Level 27 mmol/L (21-32) 22 mmol/L (21-32) Anion Gap 12 (6-14) 13 (6-14) Blood Urea Nitrogen 12 mg/dL (8-26) 18 mg/dL (8-26) Creatinine 0.7 mg/dL (0.7-1.3) 0.7 mg/dL (0.7-1.3) Estimated GFR (Cockcroft-Gault) 123.7 123.7 BUN/Creatinine Ratio 17 (6-20) Glucose Level 96 mg/dL (70-99) 138 mg/dL (70-99) Calcium Level 9.2 mg/dL (8.5-10.1) 8.5 mg/dL (8.5-10.1) Total Bilirubin 2.7 mg/dL (0.2-1.0) 1.0 mg/dL (0.2-1.0) Aspartate Amino Transf (AST/SGOT) 17 U/L (15-37) 13 U/L (15-37) Alanine Aminotransferase (ALT/SGPT) 24 U/L (16-63) 19 U/L (16-63) Alkaline Phosphatase 67 U/L (46-116) 53 U/L (46-116) Total Protein 7.8 g/dL (6.4-8.2) 6.7 g/dL (6.4-8.2) Albumin 4.7 g/dL (3.4-5.0) 3.8 g/dL (3.4-5.0) Albumin/Globulin Ratio 1.5 (1.0-1.7) Influenza Type A Antigen Negative (NEGATIVE) Influenza Type B Antigen Negative (NEGATIVE) Segmented Neutrophils % 94 % (35-66) Lymphocytes % 3 % (24-48) Monocytes % 3 % (0-10) Platelet Estimate Adequate (ADEQUATE) Anisocytosis Slight Schistocytes Direct Bilirubin 0.2 mg/dL (0.0-0.2) Laboratory Tests Test 07/27/17 03:38 White Blood Count 14.5 x10^3/uL (4.0-11.0) Red Blood Count 3.91 x10^6/uL (4.30-5.70) Hemoglobin 12.1 g/dL (13.0-17.5) Hematocrit 35.5 % (39.0-53.0) Mean Corpuscular Volume 91 fL (79-100) Mean Corpuscular Hemoglobin 31 pg (25-35) Mean Corpuscular Hemoglobin Concent 34 g/dL (31-37) Red Cell Distribution Width 13.7 % (11.5-14.5) Platelet Count 249 x10^3/uL (140-400) Neutrophils (%) (Auto) 93 % (31-73) Lymphocytes (%) (Auto) 4 % (24-48) Monocytes (%) (Auto) 3 % (0-9) Eosinophils (%) (Auto) 0 % (0-3) Basophils (%) (Auto) 0 % (0-3) Neutrophils # (Auto) 13.4 x10^3uL (1.8-7.7) Lymphocytes # (Auto) 0.6 x10^3/uL (1.0-4.8) Monocytes # (Auto) 0.5 x10^3/uL (0.0-1.1) Eosinophils # (Auto) 0.0 x10^3/uL (0.0-0.7) Basophils # (Auto) 0.0 x10^3/uL (0.0-0.2) Segmented Neutrophils % 94 % (35-66) Lymphocytes % 3 % (24-48) Monocytes % 3 % (0-10) Platelet Estimate Adequate (ADEQUATE) Anisocytosis Slight Schistocytes Sodium Level 142 mmol/L (136-145) Potassium Level 3.7 mmol/L (3.5-5.1) Chloride Level 107 mmol/L (98-107) Carbon Dioxide Level 22 mmol/L (21-32) Anion Gap 13 (6-14) Blood Urea Nitrogen 18 mg/dL (8-26) Creatinine 0.7 mg/dL (0.7-1.3) Estimated GFR (Cockcroft-Gault) 123.7 Glucose Level 138 mg/dL (70-99) Calcium Level 8.5 mg/dL (8.5-10.1) Total Bilirubin 1.0 mg/dL (0.2-1.0) Direct Bilirubin 0.2 mg/dL (0.0-0.2) Aspartate Amino Transf (AST/SGOT) 13 U/L (15-37) Alanine Aminotransferase (ALT/SGPT) 19 U/L (16-63) Alkaline Phosphatase 53 U/L (46-116) Total Protein 6.7 g/dL (6.4-8.2) Albumin 3.8 g/dL (3.4-5.0) Impression . 1. Acute respiratory failure. 2. Acute exacerbation of asthma/chronic obstructive pulmonary disease. 3. Tobacco dependent. 4. Suspect viral illness causing the above, nonspecific acute bronchitis. Plan . 1. Continue oxygen. 2. Nebulized treatments. 3. Solu-Medrol./ still wheezing 4. Doxycycline. 5. The patient instructed on the importance of discontinuing tobacco use. 6. will benefit from home steroid inhaler VIVIANE ERICKSON MD Jul 27, 2017 11:45
[2017-07-27] MEDS: QUEtiapine 100 MG TABLET. PO PRN ×2 (12:19→20:02)
[2017-07-27 15:00] VITALS: BP 119/59
[2017-07-27 19:00] VITALS: BP 100/59
[2017-07-27] MEDS: traZODone 50 MG TABLET. PO PRN (20:02)
[2017-07-27] MEDS: BUDESONIDE 0.5 MG/2 ML NEBU. NEB SCH (21:04)
[2017-07-27 23:00] VITALS: BP 96/45
[2017-07-28] MEDS: ALBUTEROL SULFATE 2.5 MG/3 ML NEBU. NEB PRN ×3 (00:15→23:01)
[2017-07-28] MEDS: ALPRAZolam 0.5 MG TABLET PO PRN ×5 (00:44→22:28)
[2017-07-28] MEDS: guaiFENesin/CODEINE 100mg/10mg 5 ML LIQUID PO PRN ×5 (00:44→22:27)
[2017-07-28] MEDS: MORPHINE SULFATE 2 MG/ML DISP.SYRIN. IV PRN ×3 (02:55→08:30)
[2017-07-28 03:00] VITALS: BP 106/72
[2017-07-28] MEDS: IPRATRPIUM/ALBUTEROL 0.5/2.5MG 3 ML NEBU. NEB SCH ×5 (06:21→20:28)
[2017-07-28] MEDS: BUDESONIDE 0.5 MG/2 ML NEBU. NEB SCH ×2 (06:21→20:28)
[2017-07-28 07:00] VITALS: BP 111/67
[2017-07-28] MEDS: predniSONE 20 MG TABLET PO SCH (08:30)
[2017-07-28] MEDS: DOXYCYCLINE HYCLATE 100 MG TABLET PO SCH ×2 (08:30→20:59)
[2017-07-28] MEDS: QUEtiapine 100 MG TABLET. PO PRN ×2 (08:30→22:28)
[2017-07-28] MEDS: LACTOBACILLUS RHAMNOSUS GG 1 CAPSULE. PO SCH ×2 (08:30→20:58)
[2017-07-28 10:59] VITALS: BP 113/59
--- NOTE | 2017-07-28 10:59 | PDOC ---
PROGRESS NOTES Chief Complaint Chief Complaint Acute hypoxic respir failure ASSESSMENT AND PLAN: 1. Asthma exacerbation: some improvement, but still using accessory muscles, hypoxia. cont steroids, nebs, suppl O2. 2. Upper respiratory infection: on doxy 3. Hyperbilirubinemia: resolved 4. Anxiety: stable mood, cont home meds 5. Prophylaxis: H2B, lovenox 6. Dispo: poss home in AM. History of Present Illness History of Present Illness cough ongoing. still working to breathe when getting up. no CP. no F/C Vitals Vitals Vital Signs Date Time Temp Pulse Resp B/P (MAP) Pulse Ox O2 Delivery O2 Flow Rate FiO2 07/28/17 08:00 Room Air 07/28/17 07:00 97.8 80 18 111/67 (82) 95 97.8 07/28/17 06:40 2.0 Physical Exam General: Alert, Oriented X3, Cooperative, No acute distress Heart: Regular rate Lungs: Wheezing (bilateral, coares UA rhonchi) Abdomen: Soft, No tenderness Extremities: No cyanosis Skin: No rashes ERICKA ZHAO MD Jul 28, 2017 10:59
--- NOTE | 2017-07-28 11:28 | PDOC ---
PULMONARY PROGRESS NOTES Subjective still congested Vitals Vital Signs Date Time Temp Pulse Resp B/P (MAP) Pulse Ox O2 Delivery O2 Flow Rate FiO2 07/28/17 10:59 97.8 85 18 113/59 (77) 93 Nasal Cannula 2.0 97.8 ROS: No Nausea, No Chest Pain, No Abdominal Pain, No Increase Cough General: Alert, No acute distress Lungs: Wheezing (bilateral) Cardiovascular: S1 Abdomen: Soft Neuro Exam: Alert Extremities: No Edema Skin: Warm Labs Laboratory Tests Test 07/27/17 03:38 White Blood Count 14.5 x10^3/uL (4.0-11.0) Red Blood Count 3.91 x10^6/uL (4.30-5.70) Hemoglobin 12.1 g/dL (13.0-17.5) Hematocrit 35.5 % (39.0-53.0) Mean Corpuscular Volume 91 fL (79-100) Mean Corpuscular Hemoglobin 31 pg (25-35) Mean Corpuscular Hemoglobin Concent 34 g/dL (31-37) Red Cell Distribution Width 13.7 % (11.5-14.5) Platelet Count 249 x10^3/uL (140-400) Neutrophils (%) (Auto) 93 % (31-73) Lymphocytes (%) (Auto) 4 % (24-48) Monocytes (%) (Auto) 3 % (0-9) Eosinophils (%) (Auto) 0 % (0-3) Basophils (%) (Auto) 0 % (0-3) Neutrophils # (Auto) 13.4 x10^3uL (1.8-7.7) Lymphocytes # (Auto) 0.6 x10^3/uL (1.0-4.8) Monocytes # (Auto) 0.5 x10^3/uL (0.0-1.1) Eosinophils # (Auto) 0.0 x10^3/uL (0.0-0.7) Basophils # (Auto) 0.0 x10^3/uL (0.0-0.2) Segmented Neutrophils % 94 % (35-66) Lymphocytes % 3 % (24-48) Monocytes % 3 % (0-10) Platelet Estimate Adequate (ADEQUATE) Anisocytosis Slight Schistocytes Sodium Level 142 mmol/L (136-145) Potassium Level 3.7 mmol/L (3.5-5.1) Chloride Level 107 mmol/L (98-107) Carbon Dioxide Level 22 mmol/L (21-32) Anion Gap 13 (6-14) Blood Urea Nitrogen 18 mg/dL (8-26) Creatinine 0.7 mg/dL (0.7-1.3) Estimated GFR (Cockcroft-Gault) 123.7 Glucose Level 138 mg/dL (70-99) Calcium Level 8.5 mg/dL (8.5-10.1) Total Bilirubin 1.0 mg/dL (0.2-1.0) Direct Bilirubin 0.2 mg/dL (0.0-0.2) Aspartate Amino Transf (AST/SGOT) 13 U/L (15-37) Alanine Aminotransferase (ALT/SGPT) 19 U/L (16-63) Alkaline Phosphatase 53 U/L (46-116) Total Protein 6.7 g/dL (6.4-8.2) Albumin 3.8 g/dL (3.4-5.0) Impression . 1. Acute respiratory failure. 2. Acute exacerbation of asthma/chronic obstructive pulmonary disease. 3. Tobacco dependent. 4. Suspect viral illness causing the above, nonspecific acute bronchitis. Plan . 1. Continue oxygen. 2. Nebulized treatments. 3. dc prednisone and change to solumedrol./ still wheezing 4. Doxycycline. 5. The patient instructed on the importance of discontinuing tobacco use. 6. will benefit from home steroid inhaler 7. Not ready for dc yet VIVIANE ERICKSON MD Jul 28, 2017 11:28
[2017-07-28] MEDS: HYDROcodone/APAP 5/325MG 1 TAB TABLET PO PRN (11:49)
[2017-07-28] MEDS ORDERED: BISACODYL 5 MG TABLET.DR. PO PRN (12:00)
[2017-07-28] MEDS ORDERED: oxyCODONE/APAP 5/325 1 TAB TABLET PO PRN (12:00)
[2017-07-28] MEDS: FAMOTIDINE 20 MG TABLET. PO SCH ×2 (12:16→20:58)
[2017-07-28] MEDS: oxyCODONE/APAP 10/325 1 TAB TABLET PO PRN ×3 (12:17→20:58)
[2017-07-28] MEDS: ENOXAPARIN 40 MG/0.4 ML SYRINGE. SQ SCH (12:18)
[2017-07-28] MEDS: methylPREDNISolone SOD SUCC PF 40 MG/ML VIAL. IV SCH ×2 (14:47→22:28)
[2017-07-28 14:53] VITALS: BP 111/63
[2017-07-28] MEDS ORDERED: CARBAMIDE PEROXIDE 6.5% OTIC SOLUTION 15ML BOTTLE. AU ONE (16:00)
[2017-07-28 19:00] VITALS: BP 117/82
[2017-07-28] MEDS: traZODone 50 MG TABLET. PO PRN (22:28)
[2017-07-28 23:00] VITALS: BP 122/69
[2017-07-29] MEDS: ALPRAZolam 0.5 MG TABLET PO PRN ×4 (02:54→17:08)
[2017-07-29] MEDS: oxyCODONE/APAP 10/325 1 TAB TABLET PO PRN ×4 (02:54→17:08)
[2017-07-29] MEDS: guaiFENesin/CODEINE 100mg/10mg 5 ML LIQUID PO PRN ×3 (02:55→17:08)
[2017-07-29 03:00] VITALS: BP 128/60
[2017-07-29] MEDS: methylPREDNISolone SOD SUCC PF 40 MG/ML VIAL. IV SCH ×2 (06:26→15:41)
[2017-07-29 07:00] VITALS: BP 142/92
[2017-07-29] MEDS: IPRATRPIUM/ALBUTEROL 0.5/2.5MG 3 ML NEBU. NEB SCH ×3 (08:09→16:21)
[2017-07-29] MEDS: BUDESONIDE 0.5 MG/2 ML NEBU. NEB SCH (08:09)
[2017-07-29] MEDS: LACTOBACILLUS RHAMNOSUS GG 1 CAPSULE. PO SCH (08:40)
[2017-07-29] MEDS: FAMOTIDINE 20 MG TABLET. PO SCH (08:41)
[2017-07-29] MEDS: DOXYCYCLINE HYCLATE 100 MG TABLET PO SCH (08:41)
[2017-07-29] MEDS: QUEtiapine 100 MG TABLET. PO PRN (08:41)
[2017-07-29] MEDS ORDERED: BISACODYL 5 MG TABLET.DR. PO SCH (09:00)
--- NOTE | 2017-07-29 09:47 | PDOC ---
PULMONARY PROGRESS NOTES Subjective feels better Vitals Vital Signs Date Time Temp Pulse Resp B/P (MAP) Pulse Ox O2 Delivery O2 Flow Rate FiO2 07/29/17 08:42 20 93 Room Air 07/29/17 08:11 2.0 07/29/17 07:00 97.9 88 142/92 (109) 97.9 ROS: No Nausea, No Chest Pain, No Abdominal Pain, No Increase Cough General: Alert, No acute distress Lungs: Wheezing (faint) Cardiovascular: S1 Abdomen: Soft Neuro Exam: Alert Extremities: No Edema Skin: Warm Impression . 1. Acute respiratory failure. 2. Acute exacerbation of asthma/chronic obstructive pulmonary disease. 3. Tobacco dependent. 4. Suspect viral illness causing the above, nonspecific acute bronchitis. Plan . 1. Continue oxygen. 2. Nebulized treatments. 3. Improving with solumedrol./ faint wheezing 4. Doxycycline. 5. The patient instructed on the importance of discontinuing tobacco use. 6. will benefit from home steroid inhaler 7. home in 24 hrs VIVIANE ERICKSON MD Jul 29, 2017 09:47
[2017-07-29 11:00] VITALS: BP 123/70
[2017-07-29] MEDS: ENOXAPARIN 40 MG/0.4 ML SYRINGE. SQ SCH (11:00)
[2017-07-29] MEDS ORDERED: POLYETHYLENE GLYCOL 3350 17 GM PACKET. PO PRN (12:30)
[2017-07-29] MEDS ORDERED: IBUPROFEN 400 MG TABLET. PO PRN (12:30)
[2017-07-29] MEDS ORDERED: BISA5TAB4 PO (14:18)
[2017-07-29] MEDS ORDERED: guaiFENesin/CODEINE 100mg/10mg PO (14:18)
[2017-07-29] MEDS ORDERED: FAMO20TA5 PO (14:18)
[2017-07-29] MEDS ORDERED: IBUP-1027 PO (14:18)
[2017-07-29] MEDS ORDERED: PRED50TA PO (14:18)
[2017-07-29] MEDS ORDERED: FLUT12AE IH (14:20)
[2017-07-29] MEDS ORDERED: VENTOLIN HFA18 GM INH (14:20)
[2017-07-29 15:00] VITALS: BP 119/68
--- NOTE | 2017-07-29 19:24 | DS ---
DATE OF DISCHARGE: 07/29/2017 CHIEF COMPLAINT: Asthma exacerbation. HISTORY OF PRESENT ILLNESS: The patient is a 41-year-old smoker with asthma who presented with acute hypoxic respiratory distress to the Emergency Room. He was found with asthma exacerbation, started with steroids, nebulizers and supplemental O2 as well as empiric doxycycline. Although suspicion was that this was a viral upper respiratory infection/bronchitis triggering his asthma. Because of significant hypoxia and a slow resolution of his distress, he was kept on IV steroids, O2 and nebulizers. As he improved by the fourth day, he was discharged to home with additional steroids and inhalers. DISCHARGE DATE: 07/29/2017. PHYSICAL EXAMINATION: VITAL SIGNS: With a blood pressure of 119/68, heart rate at 98, respiratory rate at 18. He is afebrile. GENERAL: This is a malnourished 41-year-old gentleman, alert and oriented, in no acute distress. LUNGS: Have upper airway rhonchi. No wheezes. HEART: Has regular rate and rhythm. ABDOMEN: Positive bowel sounds, soft, nontender. EXTREMITIES: Show no edema. DISCHARGE DIAGNOSES: Viral upper respiratory infection, asthma exacerbation. DISCHARGE DISPOSITION: To home. DISCHARGE CONDITION: Improved. DISCHARGE MEDICATIONS: Please refer to MAR. DISCHARGE INSTRUCTIONS: The patient will follow up with PCP. At his request, surgeons were recommended to him for followup for a longstanding inguinal hernia. ERICKA ZHAO MD DR: RIGOBERTO/nts JOB#: [id number] / [id number]
== END 2017-07-29 17:20 | disposition home or self-care (01) | DRG 189 ==
LOC: ER 03:49 → 5 SOUTH 05:00
PROVIDERS: ADMIT Internal Medicine Hematology & Oncology; ATTEND Internal Medicine Hematology & Oncology
DX: J96.01 Acute respiratory failure with hypoxia (principal); J44.1 Chronic obstructive pulmonary disease with (acute) exacerbation; J45.901 Unspecified asthma with (acute) exacerbation; R17 Unspecified jaundice; J20.9 Acute bronchitis, unspecified; F17.210 Nicotine dependence, cigarettes, uncomplicated; F41.9 Anxiety disorder, unspecified; F12.90 Cannabis use, unspecified, uncomplicated; Z88.0 Allergy status to penicillin; Z88.2 Allergy status to sulfonamides; Z88.8 Allergy status to other drugs, medicaments and biological substances; Z90.49 Acquired absence of other specified parts of digestive tract
CPT/HCPCS: 36415; 71010; 80048; 80053; 80076; 85007; 85025; 87804; 93005; 94250; 94620; 94640; 94644; 94760; 96374; 96375; J1650; J2270; J2920; J2930; J3475; J7030; J7512; J7613; J7620; J7626; J7644; 99285-25

== ENCOUNTER 2020-08-04 15:36 | Emergency (ER) | payer SELFPAY ==
[~2020-08-04] VITALS: Ht 188 cm; Wt 68.0 kg
[~2020-08-04 15:36] MED LIST: BISA5TAB4 PO; FAMO20TA5 PO; FLUT12AE IH; IBUP-1027 PO; PRED50TA PO; VENTOLIN HFA18 GM INH; guaiFENesin/CODEINE 100mg/10mg PO
[2020-08-04 15:45] VITALS: BP 130/89
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
[2020-08-04] MEDS ORDERED: NAPR-514 PO (16:33)
[2020-08-04] MEDS ORDERED: CYCL10TA2 PO (16:33)
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
[2020-08-04] MEDS ORDERED: HYDROcodone/APAP 5/325MG 1 TAB TABLET PO ONE (17:00)
== END 2020-08-04 16:50 | disposition home or self-care (01) ==
LOC: ER 15:36
DX: S46.912A Strain of unspecified muscle, fascia and tendon at shoulder and upper arm level, left arm, initial encounter (principal); S20.211A Contusion of right front wall of thorax, initial encounter; J45.909 Unspecified asthma, uncomplicated; F17.200 Nicotine dependence, unspecified, uncomplicated; Z88.0 Allergy status to penicillin; Z88.2 Allergy status to sulfonamides; Z88.1 Allergy status to other antibiotic agents; Z88.8 Allergy status to other drugs, medicaments and biological substances; Y08.89XA Assault by other specified means, initial encounter; Y93.89 Activity, other specified; Y92.59 Other trade areas as the place of occurrence of the external cause; Y99.8 Other external cause status
CPT/HCPCS: 71101; 73030; 99283; 99284

== ENCOUNTER 2022-01-09 11:37 | Inpatient (IN) | payer SELFPAY ==
[~2022-01-09] VITALS: Ht 188 cm; Wt 67.8 kg
[~2022-01-09 11:37] MED LIST changes: +CYCL10TA19 PO; +NAPR-514 PO
--- NOTE | 2022-01-09 11:44 | PHYS DOC ---
Past Medical History Past Medical History: Asthma (TL TURPIN APRN) Past Surgical History: Tonsillectomy, Other Additional Past Surgical Histo: EAR TUBES (LT TURPIN APRN) Smoking Status: Current Some Day Smoker Alcohol Use: Occasionally Drug Use: Marijuana (TL TURPIN APRN) General Adult EDM: Chief Complaint: ASTHMA HPI: HPI: Patient is a 46-year-old male presents to the emergency department via EMS nurse coordinator transport for asthma exacerbation. Patient was given 1 nebulizer t reatment of albuterol/Atrovent in route related to O2 saturation of 85% upon nurse coordinator arrival. Patient was also placed on CPAP in route. Upon patient arrival, patient reports asthma exacerbation over the past 3 to 4 days, states he has been out of his albuterol MDI rescue inhaler, has only has montelukast medication, reports taking [id number] Claritin to try to get by until he sees his primary care physician at the [facility] tomorrow. Patient does complain of generalized chest discomfort. Patient reports he has been hospitalized in the past for his asthma. Patient reports a long history of cigarette smoking, states he did quit cigarette smoking 1 week ago. Patient denies other physical complaints or physical concerns. (TL TURPIN APRN) Review of Systems: Review of Systems: 14 body systems of review of systems have been reviewed. See HPI for pertinent positives and negative responses, otherwise all other systems are negative, nonpertinent or noncontributory. Constitutional: Negative except as outlined in HPI above. Skin: Negative except as outlined in HPI above. Eyes: Negative except as outlined in HPI above. HENT: Negative except as outlined in HPI above. Respiratory: Negative except as outlined in HPI above. Cardiovascular: Negative except as outlined in HPI above. GI: Negative except as outlined in HPI above. : Negative except as outlined in HPI above. Musculoskeletal: Negative except as outlined in HPI above. Integument: Negative except as outlined in HPI above. Neurologic: Negative except as outlined in HPI above. Endocrine: Negative except as outlined in HPI above. Lymphatic: Negative except as outlined in HPI above. Psychiatric: Negative except as outlined in HPI above. (TL TURPIN APRN) Heart Score: C/O Chest Pain: Yes HEART Score for Chest Pain: HEART Score for Chest Pain Response (Comments) Value History Slighlty/Non-Suspicious 0 ECG Normal 0 Age >45 - < 65 1 Risk Factors 1 or 2 Risk Factors 1 Troponin < Normal Limit 0 Total 2 Risk Factors: Risk Factors: DM, Current or recent (<one month) smoker, HTN, HLP, family history of CAD, obesity. Risk Scores: Score 0 - 3: 2.5% MACE over next 6 weeks - Discharge Home Score 4 - 6: 20.3% MACE over next 6 weeks - Admit for Clinical Observation Score 7 - 10: 72.7% MACE over next 6 weeks - Early Invasive Strategies (TL TURPIN APRN) Allergies: Allergies: Allergies Coded Allergies Type Severity Reaction Last Updated Verified Penicillins Allergy Severe Anaphylaxis 07/26/17 Yes iodine Allergy Severe Anaphylaxis 07/26/17 Yes Sulfa (Sulfonamide Antibiotics) Allergy Intermediate 07/26/17 Yes erythromycin base Allergy Intermediate 07/26/17 Yes (TL TURPIN APRN) Physical Exam: PE: Constitutional: Well developed, well nourished, no acute distress, non-toxic appearance. 46-year-old female in mild respiratory distress, tripoding upon arrival. Patient is speaking in full sentences. HENT: Normocephalic, atraumatic. No lymphadenopathy of the head and neck appreciated, no deep tissue infectious process of the oropharynx appreciated, bilateral TMs intact and within normal limits. Eyes: Conjunctiva normal, no discharge. Neck: Normal range of motion, no stridor. Cardiovascular: No cyanosis appreciated, distal cap refill less than 2 seconds. Regular rate and rhythm, heart sounds S1-S2 auscultation. Lungs & Thorax: Patient is in mild respiratory distress, patient is using abdominal accessory muscles for work of breathing, lung sounds on right diminished all lung alexis, inspiratory/expiratory wheezing in all lung alexis of left lung. Abdomen: Nontender, no abnormalities noted. Skin: Warm, dry, no erythema, no rash. Back: No tenderness, no deformities. Extremities: No tenderness, no cyanosis, no clubbing, ROM intact, no edema. Neurologic: Alert and oriented X 3, normal motor function, normal sensory function, no focal deficits noted. Psychologic: Affect normal, judgement normal, mood normal. (TL TURPIN APRN) EKG: EKG: EKG performed at 1258 by ED nursing staff shows a normal sinus rhythm without ectopy, heart rate 87 bpm, VT interval 0.100, QTc interval 0.453, no acute STEMI, no ACS, no acute ischemia appreciated, EKG interpreted by ED attending physician Dr. Márquez. (TL TURPIN APRN) Radiology/Procedures: Radiology/Procedures: REASON: Chest pain/asthma exacerbation PROCEDURE: CHEST PA & LATERAL XR CHEST 2V History: Reason: Chest pain/asthma exacerbation / Spl. Instructions: / History: Comparison: August 04, 2020 Findings: Hyperinflation. No consolidation or pleural effusion. Normal heart size. No pneumothorax. Impression: 1. Hyperinflation. 2. Otherwise, no acute cardiopulmonary process. Electronically signed by: Jason Cobian DO (01/09/2022 12:35 PM) [id number] (TL TURPIN APRN) Course & Med Decision Making: Course & Med Decision Making Pertinent Labs and Imaging studies reviewed. (See chart for details) 46-year-old male, vital signs reviewed, presents to the emergency department concerning acute asthma exacerbation over the past few days. Will start on albuterol/Atrovent nebulizer treatment followed by 1 hour-long albuterol treatment, oral prednisone, chest x-ray, rapid COVID/flu testing, CBC, CMP, D- dimer, NT proBNP, PT/INR, high-sensitivity troponin I, magnesium level. Will reevaluate after period of time. After nebulizer breathing treatments, patient continues to have increased work of breathing with sensory muscle use. Is able to speak in full sentences however is using accessory muscle use for work of breathing. Will place on BiPAP 14/7, 60% FiO2 at a rate of 20, blood gas after 20 minutes of BiPAP therapy for reevaluation of settings, discussed with patient recommended admission to hospital for acute asthma exacerbation, patient is amenable to ED admission planning. Called and discussed patient case and ED work-up with inpatient management physician Dr. King who agrees patient presentation warrants admission to the MedSurg unit. Patient is currently awaiting to MedSurg bed assignment from nursing housefellow. (TL TURPIN APRN) Dragon Disclaimer: Dragon Disclaimer: This electronic medical record was generated, in whole or in part, using a voice recognition dictation system. (TL TURPIN APRN) Departure Departure Impression: Primary Impression: Acute asthma exacerbation Qualified Codes: J45.41 - Moderate persistent asthma with (acute) exacerbation Additional Impression: Respiratory failure Disposition: ADMITTED INPATIENT Admitting Physician: FELIPE (Admit to Dr. King to [facility].) (TL TURPIN APRN) Condition: GUARDED Referrals: NO PCP (PCP) Attending Signature I have participated in the care of this patient and I have reviewed and agree with all pertinent clinical information above including history, exam, and recommendations. (JUAREZ MÁRQUEZ DO) TL TURPIN APRN January 09, 2022 11:44 JUAREZ MÁRQUEZ DO January 09, 2022 13:35
[2022-01-09] MEDS ORDERED: ALBUTEROL SULFATE 2.5 MG/3 ML NEBU. CONT NEB ONE (11:45)
[2022-01-09] MEDS ORDERED: IPRATRPIUM/ALBUTEROL 0.5/2.5MG 3 ML NEBU. NEB ONE (11:45)
[2022-01-09] MEDS ORDERED: predniSONE 20 MG TABLET PO ONE (11:45)
[2022-01-09] MEDS ORDERED: ALBUTEROL SULFATE 2.5 MG/3 ML NEBU. ONE (11:46)
[2022-01-09 11:56] LABS: BASO % 1 % (0-3); EOS # 0.4 x10^3/uL (0.0-0.7); EOS % 7 % (0-3); HEMATOCRIT 38.6 % (39.0-53.0); HEMOGLOBIN 13.6 g/dL (13.0-17.5); LYMPH % 32 % (24-48); MEAN CORPUSCULAR HEMOGLOBIN 32 pg (25-35); MEAN CORPUSCULAR HGB CONC 35 g/dL (31-37); MEAN CORPUSCULAR VOLUME 91 fL (79-100); MONO # 0.4 x10^3/uL (0.0-1.1); MONO % 7 % (0-9); NEUT # 3.4 x10^3/uL (1.8-7.7); NEUT % 54 % (31-73); PLATELET COUNT 273 x10^3/uL (140-400); RED BLOOD COUNT 4.22 x10^6/uL (4.30-5.70); WHITE BLOOD COUNT 6.3 x10^3/uL (4.0-11.0)
[2022-01-09 12:06] LABS: PROTHROMBIN TIME PATIENT 13.4 SEC (11.7-14.0)
[2022-01-09 12:09] LABS: CALCIUM 8.9 mg/dL (8.5-10.1); CREATININE 0.8 mg/dL (0.7-1.3); GFR 103.6; POTASSIUM 3.7 mmol/L (3.5-5.1)
[2022-01-09 12:15] LABS: ALBUMIN/GLOBULIN RATIO 1.2 (1.0-1.7); D-DIMER < 0.27 ug/mlFEU (0.00-0.50); TOTAL BILIRUBIN 2.2 mg/dL (0.2-1.0); TOTAL PROTEIN 7.4 g/dL (6.4-8.2)
--- NOTE | 2022-01-09 12:38 | RAD ---
XR CHEST 2V History: Reason: Chest pain/asthma exacerbation / Spl. Instructions: / History: Comparison: August 04, 2020 Findings: Hyperinflation. No consolidation or pleural effusion. Normal heart size. No pneumothorax. Impression: 1. Hyperinflation. 2. Otherwise, no acute cardiopulmonary process. Electronically signed by: Jason Cobian DO (01/09/2022 12:35 PM) [id number]
[2022-01-09 13:16] LABS: INFLUENZA A PATIENT NEGATIVE (NEGATIVE); INFLUENZA B PATIENT NEGATIVE (NEGATIVE)
--- NOTE | 2022-01-09 13:43 | PDOC1 ---
History and Physical Date of Service: DOS: DATE: 01/09/22 TIME: 13:17 Chief Complaint: Chief Complain: Shortness of breath History of Present Illness: HPI: 46-year-old male with past medical history of asthma and tobacco abuse who comes in for acute shortness of breath. Patient has been having worsening shortness of breath for the past 3 to 4 days. He has a rescue inhaler which she has been using more frequently. He was given 1 dose of nebulizer treatment in route and he was found to be O2 saturation of 85% when paramedics arrived. In route he was also placed on CPAP. Patient recently got a new cat about a month ago and he says he also has mold in his basement that he has not really been taking care of and he has been taking Claritin. He says he does have allergies to cats but he did not think this cat was giving him the symptoms. As a child patient spent a lot of visits to the hospital for asthma attacks but he says he grew out of it as he started to participate more in sports. His PCP is at [facility]. Patient currently denies fevers, chest pain, abdominal pain, diarrhea or nausea vomiting. He does endorse a cough which is nonproductive but he feels like he can produce something but unable to get it out. No recent sick contacts or travel. Past Medical/Surgical History: PMH/PSH: Past Medical History: Asthma Past Surgical History: Tonsillectomy EAR TUBES Allergies: Allergies: Coded Allergies: Penicillins (Verified Allergy, Severe, Anaphylaxis, 07/26/17) iodine (Verified Allergy, Severe, Anaphylaxis, 07/26/17) Sulfa (Sulfonamide Antibiotics) (Verified Allergy, Intermediate, 07/26/17) erythromycin base (Verified Allergy, Intermediate, 07/26/17) Family History: Family History: Reviewed with no relative findings in the chart Social History: Social History: Smoking Status: Current Some Day Smoker, quit last week Alcohol Use: Occasionally Drug Use: Marijuana Current Medications: Current Medications Current Medications Albuterol Sulfate (Ventolin Neb Soln) 2.5 mg STK-MED ONCE .ROUTE ; Start 01/09/22 at 11:46; Stop 01/09/22 at 11:47; Status DC Prednisone (Prednisone) 60 mg 1X ONCE PO Last administered on 01/09/22at 12:00; Start 01/09/22 at 11:45; Stop 01/09/22 at 11:54; Status DC Albuterol/ Ipratropium (Duoneb) 3 ml 1X ONCE NEB ; Start 01/09/22 at 11:45; Stop 01/09/22 at 11:54; Status DC Albuterol Sulfate (Ventolin Neb Soln) 10 mg 1X ONCE CONT NEB Last administered on 01/09/22at 12:05; Start 01/09/22 at 11:45; Stop 01/09/22 at 11:54; Status DC Active Scripts Active Naproxen 500 Mg Tablet 1 Tab PO BID PRN 10 Days Cyclobenzaprine Hcl 10 Mg Tablet 1 Tab PO TID PRN 10 Days Flovent 110MCG Hfa (Fluticasone Propionate) 12 Gm Aer.w.adap 2 Puff IH BID Ventolin Hfa Inhaler (Albuterol Sulfate) 18 Gm Hfa.aer.ad 2 Puff INH Q4HRS PRN Prednisone 50 Mg Tablet 1 Tab PO DAILY Bisacodyl 5 Mg Tablet.dr 5 Mg PO DAILY PRN Ibuprofen 400 Mg Tablet 400 Mg PO PRN Q6HRS PRN [guaiFENesin/CODEINE 100mg/10mg] 5 ML Liquid 5 Ml PO PRN Q4HRS PRN Famotidine 20 Mg Tablet 20 Mg PO BID ROS: Review of Systems Review of System REVIEW OF SYSTEMS: GENERAL: Denies weakness SKIN: No bruising, hair changes or rashes. EYES: No blurred, double or loss of vision. NOSE AND THROAT: No history of nosebleeds, hoarseness or sore throat. HEART: No history of palpitations, chest pain or shortness of breath on exertion. LUNGS: Positive for shortness of breath GASTROINTESTINAL: Denies changes in appetite, nausea, vomiting, diarrhea or constipation. GENITOURINARY: No history of frequency, urgency, hesitancy or nocturia. NEUROLOGIC: Denies history of numbness, tingling, or tremor. PSYCHIATRIC: No history of panic, anxiety or depression. ENDOCRINE: No history of heat or cold intolerance, polyuria or polydipsia. EXTREMITIES: Denies joint pain, pain on walking or stiffness. Physical Exam: Vital Signs: Vital Signs Date Time Temp Pulse Resp B/P (MAP) Pulse Ox O2 Delivery O2 Flow Rate FiO2 01/09/22 12:09 96 Nasal Cannula 5.0 01/09/22 11:42 97.9 83 20 126/86 (99) 97.9 Physcial Exam: General: Well developed, well nourished, no acute distress, well appearing HEENT: Pupils equally round and reactive to light, EOMI, no discharge, normal conjunctiva Neck: Supple, no nuchal rigidity, no JVD, trachea midline, no tenderness Cardiac: RRR, no murmurs, no gallops, no rubs Chest/Lungs: Bilateral wheezes auscultated in all lung alexis. Accessory muscles use for breathing. Abdomen: soft, non-distended, no guarding, no peritoneal signs, non-tender Back: No tenderness Extremities: no edema, pulses intact, non-tender,capillary refill <3 sec bilateral upper and lower extremities, Neuro: Alert and oriented x 4, no focal deficits, normal speech Labs: Labs: Laboratory Tests Test 01/09/22 11:40 01/09/22 12:25 White Blood Count 6.3 x10^3/uL (4.0-11.0) Red Blood Count 4.22 x10^6/uL (4.30-5.70) Hemoglobin 13.6 g/dL (13.0-17.5) Hematocrit 38.6 % (39.0-53.0) Mean Corpuscular Volume 91 fL (79-100) Mean Corpuscular Hemoglobin 32 pg (25-35) Mean Corpuscular Hemoglobin Concent 35 g/dL (31-37) Red Cell Distribution Width 13.0 % (11.5-14.5) Platelet Count 273 x10^3/uL (140-400) Neutrophils (%) (Auto) 54 % (31-73) Lymphocytes (%) (Auto) 32 % (24-48) Monocytes (%) (Auto) 7 % (0-9) Eosinophils (%) (Auto) 7 % (0-3) Basophils (%) (Auto) 1 % (0-3) Neutrophils # (Auto) 3.4 x10^3/uL (1.8-7.7) Lymphocytes # (Auto) 2.0 x10^3/uL (1.0-4.8) Monocytes # (Auto) 0.4 x10^3/uL (0.0-1.1) Eosinophils # (Auto) 0.4 x10^3/uL (0.0-0.7) Basophils # (Auto) 0.0 x10^3/uL (0.0-0.2) Prothrombin Time 13.4 SEC (11.7-14.0) Prothromb Time International Ratio 1.1 (0.8-1.1) D-Dimer ([place]) < 0.27 ug/mlFEU Sodium Level 145 mmol/L (136-145) Potassium Level 3.7 mmol/L (3.5-5.1) Chloride Level 107 mmol/L (98-107) Carbon Dioxide Level 27 mmol/L (21-32) Anion Gap 11 (6-14) Blood Urea Nitrogen 10 mg/dL (8-26) Creatinine 0.8 mg/dL (0.7-1.3) Estimated GFR (Cockcroft-Gault) 103.6 BUN/Creatinine Ratio 13 (6-20) Glucose Level 111 mg/dL (70-99) Calcium Level 8.9 mg/dL (8.5-10.1) Magnesium Level 2.3 mg/dL (1.8-2.4) Total Bilirubin 2.2 mg/dL (0.2-1.0) Aspartate Amino Transf (AST/SGOT) 21 U/L (15-37) Alanine Aminotransferase (ALT/SGPT) 23 U/L (16-63) Alkaline Phosphatase 73 U/L (46-116) Troponin I High Sensitivity 4 ng/L (4-75) QK-Nnp-A-Type Natriuretic Peptide 144 pg/mL (0-124) Total Protein 7.4 g/dL (6.4-8.2) Albumin 4.0 g/dL (3.4-5.0) Albumin/Globulin Ratio 1.2 (1.0-1.7) Influenza Type A Antigen Negative (NEGATIVE) Influenza Type B Antigen Negative (NEGATIVE) SARS-CoV-2 Antigen (Rapid) Negative (NEGATIVE) Laboratory Tests Test 01/09/22 11:40 01/09/22 12:25 White Blood Count 6.3 x10^3/uL (4.0-11.0) Red Blood Count 4.22 x10^6/uL (4.30-5.70) Hemoglobin 13.6 g/dL (13.0-17.5) Hematocrit 38.6 % (39.0-53.0) Mean Corpuscular Volume 91 fL (79-100) Mean Corpuscular Hemoglobin 32 pg (25-35) Mean Corpuscular Hemoglobin Concent 35 g/dL (31-37) Red Cell Distribution Width 13.0 % (11.5-14.5) Platelet Count 273 x10^3/uL (140-400) Neutrophils (%) (Auto) 54 % (31-73) Lymphocytes (%) (Auto) 32 % (24-48) Monocytes (%) (Auto) 7 % (0-9) Eosinophils (%) (Auto) 7 % (0-3) Basophils (%) (Auto) 1 % (0-3) Neutrophils # (Auto) 3.4 x10^3/uL (1.8-7.7) Lymphocytes # (Auto) 2.0 x10^3/uL (1.0-4.8) Monocytes # (Auto) 0.4 x10^3/uL (0.0-1.1) Eosinophils # (Auto) 0.4 x10^3/uL (0.0-0.7) Basophils # (Auto) 0.0 x10^3/uL (0.0-0.2) Prothrombin Time 13.4 SEC (11.7-14.0) Prothromb Time International Ratio 1.1 (0.8-1.1) D-Dimer ([place]) < 0.27 ug/mlFEU Sodium Level 145 mmol/L (136-145) Potassium Level 3.7 mmol/L (3.5-5.1) Chloride Level 107 mmol/L (98-107) Carbon Dioxide Level 27 mmol/L (21-32) Anion Gap 11 (6-14) Blood Urea Nitrogen 10 mg/dL (8-26) Creatinine 0.8 mg/dL (0.7-1.3) Estimated GFR (Cockcroft-Gault) 103.6 BUN/Creatinine Ratio 13 (6-20) Glucose Level 111 mg/dL (70-99) Calcium Level 8.9 mg/dL (8.5-10.1) Magnesium Level 2.3 mg/dL (1.8-2.4) Total Bilirubin 2.2 mg/dL (0.2-1.0) Aspartate Amino Transf (AST/SGOT) 21 U/L (15-37) Alanine Aminotransferase (ALT/SGPT) 23 U/L (16-63) Alkaline Phosphatase 73 U/L (46-116) Troponin I High Sensitivity 4 ng/L (4-75) CH-Mig-L-Type Natriuretic Peptide 144 pg/mL (0-124) Total Protein 7.4 g/dL (6.4-8.2) Albumin 4.0 g/dL (3.4-5.0) Albumin/Globulin Ratio 1.2 (1.0-1.7) Influenza Type A Antigen Negative (NEGATIVE) Influenza Type B Antigen Negative (NEGATIVE) SARS-CoV-2 Antigen (Rapid) Negative (NEGATIVE) Images: Images PROCEDURE: CHEST PA & LATERAL XR CHEST 2V History: Reason: Chest pain/asthma exacerbation / Spl. Instructions: / History: Comparison: August 04, 2020 Findings: Hyperinflation. No consolidation or pleural effusion. Normal heart size. No pneumothorax. Impression: 1. Hyperinflation. 2. Otherwise, no acute cardiopulmonary process. Assessment/Plan Assessment/Plan Acute hypoxic respiratory failure requiring BiPAP support and nonrebreather mask. Acute asthma exacerbation History of tobacco abuse History of asthma Admit to hospitalist service for further management O2 supplementation to maintain O2 saturations greater than 90% DuoNebs every 6 hours IV steroids Pending ABG BiPAP as needed SCD and ambulation for DVT prophylaxis Protonix while on steroids GI prophylaxis ADA diet CODE STATUS full Discussed with RN and SW Disposition inpatient management as above DPOA: Father A total of 40 minutes of critical care time was spent in reviewing chart, labs, and images. Discussed with RN and SW. Justifications for Admission Other Justification NNAMDI MEADOWS MD January 09, 2022 13:43
[2022-01-09] MEDS ORDERED: diphenhydrAMINE HCL 25 MG CAPSULE PO PRN ×2 (13:45)
[2022-01-09] MEDS ORDERED: DEXTROSE 50% 25 GM / 50ML DISP.SYRIN. IV PRN (13:45)
[2022-01-09] MEDS ORDERED: ONDANSETRON PF 4 MG/2 ML VIAL. IVP PRN (13:45)
[2022-01-09] MEDS ORDERED: PROCHLORPERAZINE 10 MG/2 ML VIAL. IV PRN (13:45)
[2022-01-09] MEDS ORDERED: diphenhydrAMINE 50 MG/ML VIAL IVP PRN (13:45)
[2022-01-09] MEDS ORDERED: SENNOSIDES 8.6 MG TABLET PO PRN (13:45)
[2022-01-09] MEDS ORDERED: ACETAMINOPHEN 325 MG TABLET. PO PRN (13:45)
[2022-01-09] MEDS ORDERED: DOCUSATE SODIUM 100 MG CAPSULE. PO PRN (13:45)
[2022-01-09 14:01] LABS: BASE EXCESS COOX -1 mmol/L (-3-3); HCO3 COOX 22 mmol/L (21-28); METHEMOGLOBIN 0.6 % (0.0-1.9); OXYHEMOGLOBIN 97.4 %; PCO2 COOX 31 mmHg (35-46); PO2 COOX 153 mmHg (75-108); SAT O2 COOX 98 % (92-99)
--- NOTE | 2022-01-09 14:03 | EKG ---
[facility] [address] [place] [address] Test Date: 2022-01-09 Test Time: 12:58:49 Pat Name: DALTON DIXON Department: Room: Gender: M [employer]: : 1975 Requested By: TL TURPIN Order Number: [id number] Reading MD: Jonny Arora MD Measurements Intervals [place] Rate: 87 P: 72 [place]: 100 QRS: 87 QRSD: 86 T: 69 QT: 376 QTc: 453 Interpretive Statements SINUS RHYTHM Electronically Signed On 01-09-2022 15:07:42 CDT by Jonny Arora MD
[2022-01-09 15:30] VITALS: BP 122/75
--- NOTE | 2022-01-09 16:00 | NUR ---
Patient admitted to [facility] with asthma exberation, patient on 10 liters via venti mask sat's in low 90's. Patient c/o shortness of breath. Admit orders received, patient belongings charted.
[2022-01-09] MEDS: IPRATRPIUM/ALBUTEROL 0.5/2.5MG 3 ML NEBU. NEB SCH ×2 (16:08→21:30)
[2022-01-09] MEDS: MORPHINE SULFATE 2 MG/ML INJ. IV PRN ×2 (16:58→21:30)
--- NOTE | 2022-01-09 16:58 | NUR ---
Morphine IV and Ativan IV given for anxiety and pain. Will continue to monitor
[2022-01-09 19:00] VITALS: BP 108/56
[2022-01-09] MEDS: FAMOTIDINE 20 MG TABLET. PO SCH (20:59)
[2022-01-09 23:00] VITALS: BP 98/61
[2022-01-10] MEDS: methylPREDNISolone SOD SUCC PF 40 MG/ML VIAL. IV SCH ×5 (00:32→23:08)
[2022-01-10 03:00] VITALS: BP 101/62
[2022-01-10] MEDS: LORazepam 0.5 MG TABLET PO PRN ×3 (05:09→20:08)
[2022-01-10] MEDS: MORPHINE SULFATE 2 MG/ML INJ. IV PRN ×3 (05:37→23:09)
[2022-01-10 07:00] VITALS: BP 120/66
[2022-01-10 08:14] LABS: BASO % 0 % (0-3); EOS % 0 % (0-3); HEMATOCRIT 36.6 % (39.0-53.0); LYMPH # 0.5 x10^3/uL (1.0-4.8); LYMPH % 5 % (24-48); MEAN CORPUSCULAR HEMOGLOBIN 32 pg (25-35); MEAN CORPUSCULAR HGB CONC 36 g/dL (31-37); MEAN CORPUSCULAR VOLUME 91 fL (79-100); MONO # 0.1 x10^3/uL (0.0-1.1); MONO % 1 % (0-9); NEUT # 8.5 x10^3/uL (1.8-7.7); NEUT % 94 % (31-73); PLATELET COUNT 300 x10^3/uL (140-400); RED BLOOD COUNT 4.04 x10^6/uL (4.30-5.70); RED CELL DISTRIBUTION WIDTH 13.3 % (11.5-14.5); WHITE BLOOD COUNT 9.1 x10^3/uL (4.0-11.0)
[2022-01-10 08:27] LABS: CALCIUM 8.9 mg/dL (8.5-10.1); CREATININE 0.9 mg/dL (0.7-1.3); GFR 90.4; MAGNESIUM 2.2 mg/dL (1.8-2.4); PHOSPHORUS 3.1 mg/dL (2.6-4.7); POTASSIUM 3.9 mmol/L (3.5-5.1)
[2022-01-10 08:52] LABS: BASE EXCESS ABG 1 mmol/L (-3-3); HCO3 ABG 24 mmol/L (21-28); PCO2 ABG 34 mmHg (35-46); PO2 ABG 57 mmHg (75-108); SAT O2 ABG 89 % (92-99)
[2022-01-10] MEDS ORDERED: predniSONE 20 MG TABLET PO SCH (09:00)
--- NOTE | 2022-01-10 09:32 | PDOC ---
[employer] PROGRESS NOTE Date of Service DOS: DATE: 01/10/22 TIME: 09:30 Chief Complaint Chief Complaint Acute hypoxic respiratory failure requiring BiPAP support and nonrebreather mask. Acute asthma exacerbation History of tobacco abuse History of asthma History of Present Illness History of Present Illness 01/10: Afebrile. Breathing on 5 L nasal cannula. Still with audible wheezing. Will provide guaifenesin and additional as needed cough medications. Continue with IV steroids and duo nebulizers. Vitals/I&O Vitals/I&O: Vital Signs Date Time Temp Pulse Resp B/P (MAP) Pulse Ox O2 Delivery O2 Flow Rate FiO2 01/10/22 07:00 97.9 101 18 120/66 (84) 95 Nasal Cannula 5.0 97.9 I & O 01/09/22 01/09/22 01/10/22 15:00 23:00 07:00 Intake Total 200 ml Output Total 400 ml Balance -200 ml Physical Exam General: Alert, Oriented X3, Cooperative Heart: Regular rate Lungs: Wheezing Abdomen: Soft Extremities: No clubbing, No cyanosis Skin: No rashes, No breakdown Labs Labs: Laboratory Tests Test 01/09/22 11:40 01/09/22 12:25 01/09/22 13:27 01/10/22 07:20 White Blood Count 6.3 x10^3/uL (4.0-11.0) 9.1 x10^3/uL (4.0-11.0) Red Blood Count 4.22 x10^6/uL (4.30-5.70) 4.04 x10^6/uL (4.30-5.70) Hemoglobin 13.6 g/dL (13.0-17.5) 13.0 g/dL (13.0-17.5) Hematocrit 38.6 % (39.0-53.0) 36.6 % (39.0-53.0) Mean Corpuscular Volume 91 fL (79-100) 91 fL (79-100) Mean Corpuscular Hemoglobin 32 pg (25-35) 32 pg (25-35) Mean Corpuscular Hemoglobin Concent 35 g/dL (31-37) 36 g/dL (31-37) Red Cell Distribution Width 13.0 % (11.5-14.5) 13.3 % (11.5-14.5) Platelet Count 273 x10^3/uL (140-400) 300 x10^3/uL (140-400) Neutrophils (%) (Auto) 54 % (31-73) 94 % (31-73) Lymphocytes (%) (Auto) 32 % (24-48) 5 % (24-48) Monocytes (%) (Auto) 7 % (0-9) 1 % (0-9) Eosinophils (%) (Auto) 7 % (0-3) 0 % (0-3) Basophils (%) (Auto) 1 % (0-3) 0 % (0-3) Neutrophils # (Auto) 3.4 x10^3/uL (1.8-7.7) 8.5 x10^3/uL (1.8-7.7) Lymphocytes # (Auto) 2.0 x10^3/uL (1.0-4.8) 0.5 x10^3/uL (1.0-4.8) Monocytes # (Auto) 0.4 x10^3/uL (0.0-1.1) 0.1 x10^3/uL (0.0-1.1) Eosinophils # (Auto) 0.4 x10^3/uL (0.0-0.7) 0.0 x10^3/uL (0.0-0.7) Basophils # (Auto) 0.0 x10^3/uL (0.0-0.2) 0.0 x10^3/uL (0.0-0.2) Prothrombin Time 13.4 SEC (11.7-14.0) Prothromb Time International Ratio 1.1 (0.8-1.1) D-Dimer ([place]) < 0.27 ug/mlFEU Sodium Level 145 mmol/L (136-145) 142 mmol/L (136-145) Potassium Level 3.7 mmol/L (3.5-5.1) 3.9 mmol/L (3.5-5.1) Chloride Level 107 mmol/L (98-107) 105 mmol/L (98-107) Carbon Dioxide Level 27 mmol/L (21-32) 24 mmol/L (21-32) Anion Gap 11 (6-14) 13 (6-14) Blood Urea Nitrogen 10 mg/dL (8-26) 16 mg/dL (8-26) Creatinine 0.8 mg/dL (0.7-1.3) 0.9 mg/dL (0.7-1.3) Estimated GFR (Cockcroft-Gault) 103.6 90.4 BUN/Creatinine Ratio 13 (6-20) Glucose Level 111 mg/dL (70-99) 166 mg/dL (70-99) Calcium Level 8.9 mg/dL (8.5-10.1) 8.9 mg/dL (8.5-10.1) Magnesium Level 2.3 mg/dL (1.8-2.4) 2.2 mg/dL (1.8-2.4) Total Bilirubin 2.2 mg/dL (0.2-1.0) Aspartate Amino Transf (AST/SGOT) 21 U/L (15-37) Alanine Aminotransferase (ALT/SGPT) 23 U/L (16-63) Alkaline Phosphatase 73 U/L (46-116) Troponin I High Sensitivity 4 ng/L (4-75) VX-Wim-I-Type Natriuretic Peptide 144 pg/mL (0-124) Total Protein 7.4 g/dL (6.4-8.2) Albumin 4.0 g/dL (3.4-5.0) Albumin/Globulin Ratio 1.2 (1.0-1.7) Influenza Type A Antigen Negative (NEGATIVE) Influenza Type B Antigen Negative (NEGATIVE) SARS-CoV-2 Antigen (Rapid) Negative (NEGATIVE) O2 Saturation 98 % (92-99) Arterial Blood pH 7.47 (7.35-7.45) Arterial Blood pCO2 at Patient Temp 31 mmHg (35-46) Arterial Blood pO2 at Patient Temp 153 mmHg (75-108) Arterial Blood HCO3 22 mmol/L (21-28) Arterial Blood Base Excess -1 mmol/L (-3-3) Oxyhemoglobin 97.4 % Methemoglobin 0.6 % (0.0-1.9) Carbon Monoxide, Quantitative 0.4 % (0.0-1.9) FiO2 bipap 14/7 rr20 60% Phosphorus Level 3.1 mg/dL (2.6-4.7) Assessment and Plan Assessmemt and Plan Problems Medical Problems: (1) Acute asthma exacerbation Status: Acute (2) Respiratory failure Status: Acute Comment Review of Relevant I have reviewed the following items tiesha (where applicable) has been applied. Medications: Current Medications Medications (Trade) Dose Ordered Sig/Luz Route PRN Reason Start Time Stop Time Status Last Admin Dose Admin Prednisone (Prednisone) 60 mg 1X ONCE PO 01/09/22 11:45 01/09/22 11:54 DC 01/09/22 12:00 Albuterol/ Ipratropium (Duoneb) 3 ml 1X ONCE NEB 01/09/22 11:45 01/09/22 11:54 DC 01/09/22 11:45 Albuterol Sulfate (Ventolin Neb Soln) 10 mg 1X ONCE CONT NEB 01/09/22 11:45 01/09/22 11:54 DC 01/09/22 12:05 Albuterol/ Ipratropium (Duoneb) 3 ml RTQID NEB 01/09/22 16:00 01/09/22 21:30 Lorazepam (Ativan) 0.5 mg PRN Q6HRS PRN PO ANXIETY / AGITATION 01/09/22 13:45 01/10/22 05:09 Lorazepam (Ativan Inj) 0.25 mg PRN Q4HRS PRN IV ANXIETY / AGITATION 01/09/22 13:45 01/09/22 21:31 Famotidine (Pepcid) 20 mg BID PO 01/09/22 21:00 01/09/22 20:59 Morphine Sulfate (Morphine Sulfate) 1 mg PRN Q1HR PRN IV PAIN-SEE COMMENTS 01/09/22 13:45 01/10/22 05:37 Methylprednisolone Sodium Succinate (SOLU-Medrol 40MG VIAL) 40 mg Q6HRS IV 01/10/22 00:00 01/12/22 23:59 01/10/22 05:37 Justifications for Admission Other Justification Acute asthma exacerbation SUNNY MCMAHON MD January 10, 2022 09:32
[2022-01-10] MEDS: BENZONATATE 100 MG CAPSULE. PO PRN ×2 (10:08→23:08)
[2022-01-10] MEDS: FAMOTIDINE 20 MG TABLET. PO SCH ×2 (10:08→20:08)
[2022-01-10] MEDS: guaiFENesin/CODEINE 100mg/10mg 5 ML LIQUID PO PRN ×2 (10:08→17:59)
[2022-01-10] MEDS: guaiFENesin DM 600/30MG 1 TAB TAB.ER.12H PO SCH ×2 (10:37→20:08)
[2022-01-10 11:00] VITALS: BP 104/65
[2022-01-10 14:44] VITALS: BP 118/71
[2022-01-10] MEDS: HYDROcodone/APAP 5/325MG 1 TAB TABLET PO PRN (14:54)
--- NOTE | 2022-01-10 15:49 | NUR ---
SS following for discharge planning. SS reviewed pt chart and discussed with pt RN. Pt is from home and is currently requiring oxygen at five liters nasal canula. Pt on IV Solu-Medrol. Self pay. [employer] following. SS will continue to follow for discharge planning.
[2022-01-10 19:00] VITALS: BP 125/84
[2022-01-10] MEDS: IPRATROPIUM/ALBUTEROL 20/100mcg/INH INHALER. INH SCH (20:08)
[2022-01-10 23:00] VITALS: BP 100/56
[2022-01-11] MEDS: ZOLPIDEM 5 MG TABLET. PO PRN ×2 (00:13→23:31)
[2022-01-11] MEDS: LORazepam 0.5 MG TABLET PO PRN ×3 (02:26→20:15)
[2022-01-11] MEDS: MORPHINE SULFATE 2 MG/ML INJ. IV PRN ×6 (02:49→20:17)
[2022-01-11 03:00] VITALS: BP 108/67
[2022-01-11] MEDS: guaiFENesin/CODEINE 100mg/10mg 5 ML LIQUID PO PRN ×2 (06:04→09:10)
[2022-01-11] MEDS: methylPREDNISolone SOD SUCC PF 40 MG/ML VIAL. IV SCH ×4 (06:04→23:31)
[2022-01-11 07:00] VITALS: BP 106/78
[2022-01-11 07:32] LABS: BASO % 0 % (0-3); EOS % 0 % (0-3); HEMOGLOBIN 12.5 g/dL (13.0-17.5); LYMPH # 0.9 x10^3/uL (1.0-4.8); LYMPH % 6 % (24-48); MEAN CORPUSCULAR HEMOGLOBIN 32 pg (25-35); MEAN CORPUSCULAR HGB CONC 35 g/dL (31-37); MEAN CORPUSCULAR VOLUME 92 fL (79-100); MONO # 0.7 x10^3/uL (0.0-1.1); MONO % 5 % (0-9); NEUT # 13.1 x10^3/uL (1.8-7.7); NEUT % 89 % (31-73); PLATELET COUNT 289 x10^3/uL (140-400); RED BLOOD COUNT 3.92 x10^6/uL (4.30-5.70); RED CELL DISTRIBUTION WIDTH 13.2 % (11.5-14.5); WHITE BLOOD COUNT 14.7 x10^3/uL (4.0-11.0)
[2022-01-11 07:42] LABS: CALCIUM 8.7 mg/dL (8.5-10.1); CREATININE 0.8 mg/dL (0.7-1.3); GFR 103.6; MAGNESIUM 2.3 mg/dL (1.8-2.4); POTASSIUM 4.3 mmol/L (3.5-5.1)
[2022-01-11 08:29] LABS: % BANDS 4 % (0-9); % LYMPHS 6 % (24-48); % MONOS 3 % (0-10); % SEGS 87 % (35-66); PLT ESTIMATE ADEQUATE (ADEQUATE)
[2022-01-11] MEDS: FAMOTIDINE 20 MG TABLET. PO SCH ×2 (09:10→20:15)
[2022-01-11] MEDS: HYDROcodone/APAP 5/325MG 1 TAB TABLET PO PRN ×2 (09:12→23:38)
[2022-01-11] MEDS: IPRATROPIUM/ALBUTEROL 20/100mcg/INH INHALER. INH SCH ×4 (09:14→20:14)
[2022-01-11 11:00] VITALS: BP 112/72
--- NOTE | 2022-01-11 11:35 | PDOC ---
[employer] PROGRESS NOTE Date of Service DOS: DATE: 01/11/22 TIME: 11:35 Chief Complaint Chief Complaint Acute hypoxic respiratory failure requiring BiPAP support and nonrebreather mask. Acute asthma exacerbation History of tobacco abuse History of asthma History of Present Illness History of Present Illness 01/11 Seen and examined at bedside. Still requiring nasal cannula but improving. Wheezing improving. Continue current management. Wean oxygen as tolerated. Discussed with bedside RN. Possible discharge in next few days. 01/10: Afebrile. Breathing on 5 L nasal cannula. Still with audible wheezing. Will provide guaifenesin and additional as needed cough medications. Continue with IV steroids and duo nebulizers. Vitals/I&O Vitals/I&O: Vital Signs Date Time Temp Pulse Resp B/P (MAP) Pulse Ox O2 Delivery O2 Flow Rate FiO2 01/11/22 11:17 94 Nasal Cannula 3.0 01/11/22 09:12 19 01/11/22 07:00 97.6 71 106/78 (87) 97.6 I & O 01/10/22 01/10/22 01/11/22 15:00 23:00 07:00 Intake Total 120 ml 240 ml Balance 120 ml 240 ml Physical Exam General: Alert, Oriented X3, Cooperative Heart: Regular rate Lungs: Wheezing Abdomen: Soft Extremities: No clubbing, No cyanosis Skin: No rashes, No breakdown Labs Labs: Laboratory Tests Test 01/11/22 06:20 White Blood Count 14.7 x10^3/uL (4.0-11.0) Red Blood Count 3.92 x10^6/uL (4.30-5.70) Hemoglobin 12.5 g/dL (13.0-17.5) Hematocrit 36.0 % (39.0-53.0) Mean Corpuscular Volume 92 fL (79-100) Mean Corpuscular Hemoglobin 32 pg (25-35) Mean Corpuscular Hemoglobin Concent 35 g/dL (31-37) Red Cell Distribution Width 13.2 % (11.5-14.5) Platelet Count 289 x10^3/uL (140-400) Neutrophils (%) (Auto) 89 % (31-73) Lymphocytes (%) (Auto) 6 % (24-48) Monocytes (%) (Auto) 5 % (0-9) Eosinophils (%) (Auto) 0 % (0-3) Basophils (%) (Auto) 0 % (0-3) Neutrophils # (Auto) 13.1 x10^3/uL (1.8-7.7) Lymphocytes # (Auto) 0.9 x10^3/uL (1.0-4.8) Monocytes # (Auto) 0.7 x10^3/uL (0.0-1.1) Eosinophils # (Auto) 0.0 x10^3/uL (0.0-0.7) Basophils # (Auto) 0.0 x10^3/uL (0.0-0.2) Segmented Neutrophils % 87 % (35-66) Band Neutrophils % 4 % (0-9) Lymphocytes % 6 % (24-48) Monocytes % 3 % (0-10) Platelet Estimate Adequate (ADEQUATE) Sodium Level 138 mmol/L (136-145) Potassium Level 4.3 mmol/L (3.5-5.1) Chloride Level 104 mmol/L (98-107) Carbon Dioxide Level 24 mmol/L (21-32) Anion Gap 10 (6-14) Blood Urea Nitrogen 25 mg/dL (8-26) Creatinine 0.8 mg/dL (0.7-1.3) Estimated GFR (Cockcroft-Gault) 103.6 Glucose Level 136 mg/dL (70-99) Calcium Level 8.7 mg/dL (8.5-10.1) Magnesium Level 2.3 mg/dL (1.8-2.4) Assessment and Plan Assessmemt and Plan Problems Medical Problems: (1) Acute asthma exacerbation Status: Acute (2) Respiratory failure Status: Acute Comment Review of Relevant I have reviewed the following items tiesha (where applicable) has been applied. Medications: Current Medications Medications (Trade) Dose Ordered Sig/Luz Route PRN Reason Start Time Stop Time Status Last Admin Dose Admin Albuterol/ Ipratropium (Combivent Respimat 20-100 Mcg) 1 puff RTQID INH 01/10/22 20:00 01/11/22 09:14 Justifications for Admission Other Justification Acute asthma exacerbation GERMANIA PATEL MD January 11, 2022 11:35
[2022-01-11] MEDS: guaiFENesin DM 600/30MG 1 TAB TAB.ER.12H PO SCH ×2 (13:24→20:15)
[2022-01-11 15:00] VITALS: BP 103/58
[2022-01-11 19:00] VITALS: BP 109/65
[2022-01-11] MEDS ORDERED: IPRATRPIUM/ALBUTEROL 0.5/2.5MG 3 ML NEBU. ONE (19:03)
[2022-01-11] MEDS: IPRATRPIUM/ALBUTEROL 0.5/2.5MG 3 ML NEBU. NEB SCH (20:57)
[2022-01-11 23:00] VITALS: BP 113/56
[2022-01-12 03:08] VITALS: BP 116/60
[2022-01-12] MEDS: MORPHINE SULFATE 2 MG/ML INJ. IV PRN ×6 (04:12→21:58)
[2022-01-12] MEDS: guaiFENesin/CODEINE 100mg/10mg 5 ML LIQUID PO PRN (04:13)
[2022-01-12] MEDS: methylPREDNISolone SOD SUCC PF 40 MG/ML VIAL. IV SCH ×3 (06:21→11:49)
[2022-01-12] MEDS: LORazepam 0.5 MG TABLET PO PRN ×3 (06:21→17:54)
[2022-01-12] MEDS: HYDROcodone/APAP 5/325MG 1 TAB TABLET PO PRN ×3 (06:22→20:26)
[2022-01-12 07:00] VITALS: BP 97/63
[2022-01-12] MEDS: IPRATRPIUM/ALBUTEROL 0.5/2.5MG 3 ML NEBU. NEB SCH ×4 (07:20→19:43)
[2022-01-12 07:30] LABS: BASO % 0 % (0-3); EOS % 0 % (0-3); HEMATOCRIT 35.1 % (39.0-53.0); LYMPH # 0.6 x10^3/uL (1.0-4.8); LYMPH % 6 % (24-48); MEAN CORPUSCULAR HEMOGLOBIN 32 pg (25-35); MEAN CORPUSCULAR HGB CONC 34 g/dL (31-37); MEAN CORPUSCULAR VOLUME 92 fL (79-100); MONO # 0.4 x10^3/uL (0.0-1.1); MONO % 4 % (0-9); NEUT # 10.4 x10^3/uL (1.8-7.7); NEUT % 91 % (31-73); PLATELET COUNT 276 x10^3/uL (140-400); RED BLOOD COUNT 3.81 x10^6/uL (4.30-5.70); RED CELL DISTRIBUTION WIDTH 13.5 % (11.5-14.5); WHITE BLOOD COUNT 11.4 x10^3/uL (4.0-11.0)
[2022-01-12 07:47] LABS: CALCIUM 8.7 mg/dL (8.5-10.1); CREATININE 0.9 mg/dL (0.7-1.3); GFR 90.4; MAGNESIUM 2.3 mg/dL (1.8-2.4); POTASSIUM 3.9 mmol/L (3.5-5.1)
[2022-01-12] MEDS: IPRATROPIUM/ALBUTEROL 20/100mcg/INH INHALER. INH SCH ×4 (08:00→20:26)
[2022-01-12] MEDS: guaiFENesin DM 600/30MG 1 TAB TAB.ER.12H PO SCH ×2 (08:31→20:26)
[2022-01-12] MEDS: BENZONATATE 100 MG CAPSULE. PO PRN ×2 (08:31→21:57)
[2022-01-12] MEDS: FAMOTIDINE 20 MG TABLET. PO SCH ×2 (08:31→20:26)
[2022-01-12 11:00] VITALS: BP 113/67
[2022-01-12 15:00] VITALS: BP 125/74
[2022-01-12 19:00] VITALS: BP 109/64
[2022-01-12] MEDS: ZOLPIDEM 5 MG TABLET. PO PRN (21:57)
[2022-01-12 23:00] VITALS: BP 114/66
[2022-01-13] MEDS: LORazepam 0.5 MG TABLET PO PRN ×3 (00:19→12:21)
[2022-01-13] MEDS: guaiFENesin/CODEINE 100mg/10mg 5 ML LIQUID PO PRN (00:19)
[2022-01-13] MEDS: MORPHINE SULFATE 2 MG/ML INJ. IV PRN ×4 (00:20→12:24)
[2022-01-13 03:00] VITALS: BP 104/64
[2022-01-13] MEDS: HYDROcodone/APAP 5/325MG 1 TAB TABLET PO PRN ×2 (03:17→10:32)
[2022-01-13 07:00] VITALS: BP 115/64
[2022-01-13] MEDS: IPRATRPIUM/ALBUTEROL 0.5/2.5MG 3 ML NEBU. NEB SCH ×2 (07:27→12:28)
[2022-01-13] MEDS: IPRATROPIUM/ALBUTEROL 20/100mcg/INH INHALER. INH SCH ×2 (08:00→12:00)
[2022-01-13] MEDS: guaiFENesin DM 600/30MG 1 TAB TAB.ER.12H PO SCH (08:57)
[2022-01-13] MEDS: FAMOTIDINE 20 MG TABLET. PO SCH (08:57)
[2022-01-13] MEDS: BENZONATATE 100 MG CAPSULE. PO PRN (08:57)
[2022-01-13] MEDS ORDERED: SERTRALINE 50 MG TABLET. PO SCH (09:00)
[2022-01-13 11:00] VITALS: BP 121/68
[2022-01-13] MEDS ORDERED: SERT-267 PO (12:27)
[2022-01-13] MEDS ORDERED: FLUT12AE IH (12:27)
[2022-01-13] MEDS ORDERED: VENTOLIN HFA18 GM INH (12:27)
[2022-01-13] MEDS ORDERED: BENZ-8 PO (12:27)
[2022-01-13] MEDS ORDERED: HYDR-2761 PO (12:27)
--- NOTE | 2022-01-13 14:45 | NUR ---
Discharge Note: Eloy JACKSON [place] Discharge instructions and discharge home medications reviewed with Patient and a copy given. All questions have been answered and understanding verbalized. The following instructions and handouts were given: f/u with pcp within two weeks. List of mental health facilities given to patient. Discontinued lines and drains: Peripheral IV intact. Patient discharged to Home or Self Care with Self via [facility]. ([employer])
== END 2022-01-13 14:45 | disposition home or self-care (01) | DRG 189 ==
LOC: ER 11:37 → ED HOLD 13:20 → 5 NORTH 15:41
PROVIDERS: ADMIT Internal Medicine; ATTEND Internal Medicine
PROC: 5A09357 Assistance with Respiratory Ventilation, Less than 24 Consecutive Hours, Continuous Positive Airway Pressure (ICD-10-PCS; 2022-01-09)
PROC: 5A09357 Assistance with Respiratory Ventilation, Less than 24 Consecutive Hours, Continuous Positive Airway Pressure (ICD-10-PCS; 2022-01-10)
PROC: 5A09357 Assistance with Respiratory Ventilation, Less than 24 Consecutive Hours, Continuous Positive Airway Pressure (ICD-10-PCS; 2022-01-11)
PROC: 5A09357 Assistance with Respiratory Ventilation, Less than 24 Consecutive Hours, Continuous Positive Airway Pressure (ICD-10-PCS; principal; 2022-01-13)
DX: J96.01 Acute respiratory failure with hypoxia (principal); J45.41 Moderate persistent asthma with (acute) exacerbation; Z87.891 Personal history of nicotine dependence; Z20.822 Contact with and (suspected) exposure to COVID-19
CPT/HCPCS: 36415; 36600; 71046; 80048; 80053; 82805; 83735; 83880; 84100; 84484; 85007; 85025; 85379; 85610; 87428; 93005; 94640; 94660; 94760; J2060; J2270; J2920; J7512; U0003; 99285-25; G0378; J7613; Q0163